=== PATIENT | male | born 1935 | race Caucasian/White ===

== ENCOUNTER 2021-10-08 10:42 | Emergency (ER) | payer OTHER ==
[2021-10-08 11:00] VITALS: BP 138/59; PULSE 76; RESP 18; TEMP 97.3; BMI 27.3
[2021-10-08 12:34] LABS: BASO % 0.6 % (0-2.0); HEMATOCRIT 35.3 % (35.4-49); LYMPH % 11.3 % (8-40); MCHC 34.1 g/dl (32.0-35.9); MEAN CELL VOLUME 91.1 fl (80-96); MEAN PLT VOLUME 9.5 fl (7.5-11.1); MONO % 10.1 % (3.8-10.2); PLATELET COUNT 243 10^3/uL (134-434); RBC 3.88 M/mm3 (4.00-5.60); RDW 14.4 % (11.9-15.9); WHITE BLOOD COUNT 10.2 K/mm3 (4.0-10.0)
[2021-10-08 12:53] LABS: EPI CELLS 3 /uL (0-25.1); HYALINE CASTS 0 /uL (0-3.1); PH,URINE 5.5 (5.0-8.0); URINE APPEARANCE CLEAR; URINE BACTERIA 6 /uL (0-1359); URINE BILIRUBIN NEGATIVE (NEGATIVE); URINE COLOR YELLOW; URINE GLUCOSE (UA) 3+ (NEGATIVE); URINE KETONE NEGATIVE (NEGATIVE); URINE LEUK ESTERASE NEGATIVE (NEGATIVE); URINE NITRITE NEGATIVE (NEGATIVE); URINE PROTEIN 1+ (NEGATIVE); URINE RBC 3 /uL (0-23.9); URINE WBC 16 /uL (0-25.8)
[2021-10-08 13:01] LABS: ALBUMIN 3.1 g/dl (3.4-5.0); BLOOD UREA NITROGEN 17.2 mg/dL (7-18); CALCIUM 8.9 mg/dL (8.5-10.1); MAGNESIUM 1.5 mg/dL (1.8-2.4)
[2021-10-08 13:04] LABS: CREATININE 0.9 mg/dL (0.55-1.3)
[2021-10-08 13:06] LABS: BILIRUBIN,TOTAL 0.3 mg/dL (0.2-1); TOT PROT 6.3 g/dl (6.4-8.2)
== END 2021-10-08 19:43 | disposition home or self-care (01) ==
LOC: EDBD 10:42 → JER 10:42
DX: F03.90 Unspecified dementia, unspecified severity, without behavioral disturbance, psychotic disturbance, mood disturbance, and anxiety (principal)
CPT/HCPCS: 0241U-QW; 36415; 70450-TC; 71045-TC-FY; 72125-TC; 80053; 81003; 83735; 84100; 84484; 85025; 87086; 93005; 93010; 99285-25

== ENCOUNTER 2022-05-18 13:12 | Inpatient (IN) | payer OTHER ==
[2022-05-18 13:54] VITALS: BMI 25.0
[2022-05-18 16:03] LABS: BASO % 0.3 % (0-2.0); EOS % 1.6 % (0-4.5); HEMATOCRIT 35.6 % (35.4-49); HEMOGLOBIN 11.9 GM/dL (11.7-16.9); LYMPH % 12.1 % (8-40); MCH 30.2 pg (25.7-33.7); MCHC 33.4 g/dl (32.0-35.9); MEAN CELL VOLUME 90.6 fl (80-96); MEAN PLT VOLUME 9.3 fl (7.5-11.1); MONO % 8.8 % (3.8-10.2); NEUT % 77.2 % (42.8-82.8); PLATELET COUNT 277 10^3/uL (134-434); RBC 3.94 M/mm3 (4.00-5.60); RDW 14.8 % (11.9-15.9); WHITE BLOOD COUNT 12.4 K/mm3 (4.0-10.0)
[2022-05-18 16:11] LABS: INR 1.46 (0.83-1.09); PROTHROMBIN TIME (PATIENT) 16.9 SEC (9.7-13.0)
[2022-05-18 16:13] LABS: ACTIVATED PTT 31.2 SECONDS (25.2-36.5)
[2022-05-18 16:30] LABS: ALBUMIN 3.1 g/dl (3.4-5.0); BLOOD UREA NITROGEN 19.1 mg/dL (7-18); CALCIUM 8.7 mg/dL (8.5-10.1)
[2022-05-18 16:34] LABS: BILIRUBIN,TOTAL 0.3 mg/dL (0.2-1); TOT PROT 6.6 g/dl (6.4-8.2)
[2022-05-18 16:37] LABS: URINE APPEARANCE CLEAR; URINE BILIRUBIN NEGATIVE (NEGATIVE); URINE COLOR YELLOW; URINE GLUCOSE (UA) TRACE (NEGATIVE); URINE KETONE NEGATIVE (NEGATIVE); URINE LEUK ESTERASE NEGATIVE (NEGATIVE); URINE NITRITE NEGATIVE (NEGATIVE); URINE PROTEIN TRACE (NEGATIVE); URINE UROBILINOGEN 0.2 mg/dL (0.2-1.0)
[2022-05-18] MEDS ORDERED: ASPIRIN 81 MG CHEWABLE TABLETS PO ONE (16:49)
[2022-05-18] MEDS ORDERED: ASPIRIN 81 MG CHEWABLE TABLETS ONE (17:08)
[2022-05-18] MEDS ORDERED: PANTOPRAZOLE 40 MG TABLET PO ONE (18:29)
[2022-05-18] MEDS: INSULIN SLIDING SCALE (NOVOLOG) 1 VIAL SQ SCH (18:37)
[2022-05-18] MEDS: PANTOPRAZOLE 40 MG TABLET PO SCH (18:37)
[2022-05-18] MEDS ORDERED: ACETAMINOPHEN 325 MG TABLET (FP) PO PRN (19:08)
[2022-05-18] MEDS ORDERED: AMMONIUM LACTATE 12% LOTION 225 GM BOTTLE TP SCH (19:15)
[2022-05-18] MEDS ORDERED: WARFARIN NA 5 MG TABLET PO ONE ×2 (19:45→22:15)
[2022-05-18] MEDS: MINERAL OIL/PET HY-PHL TOPICAL OINTMENT 454 GM JAR TP SCH (22:52)
[2022-05-18] MEDS: AMMONIUM LACTATE 12% LOTION 225 GM BOTTLE TP SCH (22:54)
[2022-05-18] MEDS: GABAPENTIN 100 MG CAPSULE PO SCH (22:54)
[2022-05-18] MEDS: FLUTICASONE PROP 0.05% 16 GM NASAL SPRAY NS SCH (22:55)
[2022-05-19] MEDS: INSULIN SLIDING SCALE (NOVOLOG) 1 VIAL SQ SCH ×3 (07:41→17:03)
[2022-05-19 08:49] LABS: BASO % 0.4 % (0-2.0); EOS % 0.2 % (0-4.5); HEMATOCRIT 36.5 % (35.4-49); HEMOGLOBIN 12.1 GM/dL (11.7-16.9); LYMPH % 6.4 % (8-40); MCH 30.2 pg (25.7-33.7); MCHC 33.2 g/dl (32.0-35.9); MEAN CELL VOLUME 90.9 fl (80-96); MEAN PLT VOLUME 9.4 fl (7.5-11.1); MONO % 7.4 % (3.8-10.2); NEUT % 85.6 % (42.8-82.8); PLATELET COUNT 295 10^3/uL (134-434); RBC 4.01 M/mm3 (4.00-5.60); RDW 14.5 % (11.9-15.9); WHITE BLOOD COUNT 19.8 K/mm3 (4.0-10.0)
[2022-05-19] MEDS ORDERED: LORazepam 2 MG/ML SDV VIAL IVPUSH PRN (08:54)
[2022-05-19 09:12] LABS: BLOOD UREA NITROGEN 15.7 mg/dL (7-18); CALCIUM 9.3 mg/dL (8.5-10.1)
[2022-05-19 09:16] LABS: CREATININE 0.9 mg/dL (0.55-1.3)
[2022-05-19 11:13] LABS: INR 1.38 (0.83-1.09)
[2022-05-19] MEDS: PANTOPRAZOLE 40 MG TABLET PO SCH (11:16)
[2022-05-19] MEDS: RIVASTIGMINE 9.5 MG/24 HOURS TRANSDERMAL PATCH TD SCH (11:16)
[2022-05-19] MEDS: KCL 10 MEQ IVPB 10 MEQ/100 ML INFUS.BAG IVPB SCH ×3 (11:16→15:53)
[2022-05-19] MEDS: amLODIPine BESYLATE 10 MG TABLET (FP) PO SCH (11:16)
[2022-05-19] MEDS: LISINOPRIL 10 MG TABLET PO SCH (11:16)
[2022-05-19] MEDS: MULTIVITAMINS THER W-MINERALS COMBO TABLET (FP) PO SCH (11:16)
[2022-05-19] MEDS: FOLIC ACID 1 MG TABLET (FP) PO SCH (11:16)
[2022-05-19] MEDS: MINERAL OIL/PET HY-PHL TOPICAL OINTMENT 454 GM JAR TP SCH ×2 (11:17→23:24)
[2022-05-19] MEDS: FLUTICASONE PROP 0.05% 16 GM NASAL SPRAY NS SCH ×2 (11:17→23:24)
[2022-05-19] MEDS: MUPIROCIN 2% TOPICAL OINTMENT 22 GM TUBE TP SCH ×2 (11:17→23:25)
[2022-05-19] MEDS: CHLORTHALIDONE 25 MG TABLET PO SCH (11:17)
[2022-05-19] MEDS: NYSTATIN POWDER 100,000 UNITS/GM - 15 GM TOPICAL POWDER TP SCH ×2 (11:17→23:25)
[2022-05-19] MEDS: AMMONIUM LACTATE 12% LOTION 225 GM BOTTLE TP SCH ×2 (11:17→23:24)
[2022-05-19] MEDS ORDERED: KCL 10 MEQ IVPB 10 MEQ/100 ML INFUS.BAG IVPB SCH (15:45)
[2022-05-19] MEDS ORDERED: LORazepam 2 MG/ML SDV VIAL IVPUSH ONE (15:57)
[2022-05-19] MEDS ORDERED: WARFARIN NA 5 MG TABLET PO SCH (18:00)
[2022-05-19] MEDS ORDERED: WARFARIN NA 5 MG TABLET PO ONE (18:24)
[2022-05-19] MEDS: GABAPENTIN 100 MG CAPSULE PO SCH (23:27)
[2022-05-19] MEDS: ATORVASTATIN CA 20 MG TABLET (FP) PO SCH (23:27)
[2022-05-20] MEDS: INSULIN SLIDING SCALE (NOVOLOG) 1 VIAL SQ SCH ×5 (06:54→21:17)
[2022-05-20 08:30] LABS: INR 1.49 (0.83-1.09); PROTHROMBIN TIME (PATIENT) 17.2 SEC (9.7-13.0)
[2022-05-20 08:33] LABS: BASO % 0.5 % (0-2.0); HEMATOCRIT 34.6 % (35.4-49); HEMOGLOBIN 11.5 GM/dL (11.7-16.9); MCH 29.5 pg (25.7-33.7); MCHC 33.3 g/dl (32.0-35.9); MEAN CELL VOLUME 88.6 fl (80-96); MEAN PLT VOLUME 8.8 fl (7.5-11.1); MONO % 8.4 % (3.8-10.2); NEUT % 80.1 % (42.8-82.8); PLATELET COUNT 232 10^3/uL (134-434); RBC 3.91 M/mm3 (4.00-5.60); RDW 14.9 % (11.9-15.9); WHITE BLOOD COUNT 12.2 K/mm3 (4.0-10.0)
[2022-05-20] MEDS: FOLIC ACID 1 MG TABLET (FP) PO SCH (09:15)
[2022-05-20] MEDS: amLODIPine BESYLATE 10 MG TABLET (FP) PO SCH (09:15)
[2022-05-20] MEDS: PANTOPRAZOLE 40 MG TABLET PO SCH (09:15)
[2022-05-20] MEDS: LISINOPRIL 10 MG TABLET PO SCH (09:15)
[2022-05-20] MEDS: MINERAL OIL/PET HY-PHL TOPICAL OINTMENT 454 GM JAR TP SCH ×2 (09:15→21:18)
[2022-05-20] MEDS: FLUTICASONE PROP 0.05% 16 GM NASAL SPRAY NS SCH ×2 (09:16→21:17)
[2022-05-20] MEDS: MUPIROCIN 2% TOPICAL OINTMENT 22 GM TUBE TP SCH ×2 (09:17→21:17)
[2022-05-20] MEDS: RIVASTIGMINE 9.5 MG/24 HOURS TRANSDERMAL PATCH TD SCH (09:24)
[2022-05-20] MEDS: CHLORTHALIDONE 25 MG TABLET PO SCH (09:24)
[2022-05-20] MEDS: NYSTATIN POWDER 100,000 UNITS/GM - 15 GM TOPICAL POWDER TP SCH ×2 (09:27→21:17)
[2022-05-20] MEDS: MULTIVITAMINS THER W-MINERALS COMBO TABLET (FP) PO SCH (09:39)
[2022-05-20] MEDS ORDERED: WARFARIN NA 5 MG TABLET PO SCH ×2 (10:31→18:00)
[2022-05-20] MEDS: KCL 10 MEQ IVPB 10 MEQ/100 ML INFUS.BAG IVPB SCH ×3 (11:15→12:49)
[2022-05-20] MEDS ORDERED: INSULIN (NOVOLOG) ASPART 100 UNITS/ML 10ML VIAL ONE ×2 (12:12→21:16)
[2022-05-20] MEDS ORDERED: POTASSIUM CHLORIDE TABS 20 MEQ TABLET.ER (FP) PO ONE (13:30)
[2022-05-20] MEDS ORDERED: LORazepam 2 MG/ML SDV VIAL IVPUSH PRN (17:50)
[2022-05-20] MEDS ORDERED: WARFARIN NA 5 MG TABLET PO ONE (18:00)
[2022-05-20] MEDS: WARFARIN NA 5 MG TABLET PO SCH (18:15)
[2022-05-20] MEDS: ATORVASTATIN CA 20 MG TABLET (FP) PO SCH (21:10)
[2022-05-20] MEDS: GABAPENTIN 100 MG CAPSULE PO SCH (21:10)
[2022-05-20] MEDS: LORazepam 2 MG/ML SDV VIAL IVPUSH PRN (21:50)
[2022-05-21] MEDS: INSULIN SLIDING SCALE (NOVOLOG) 1 VIAL SQ SCH ×4 (06:47→22:38)
[2022-05-21 08:29] LABS: BASO % 0.5 % (0-2.0); HEMATOCRIT 34.2 % (35.4-49); HEMOGLOBIN 11.4 GM/dL (11.7-16.9); LYMPH % 11.5 % (8-40); MCH 29.6 pg (25.7-33.7); MCHC 33.3 g/dl (32.0-35.9); MEAN CELL VOLUME 88.9 fl (80-96); PLATELET COUNT 215 10^3/uL (134-434); RBC 3.85 M/mm3 (4.00-5.60); WHITE BLOOD COUNT 11.4 K/mm3 (4.0-10.0)
[2022-05-21 08:33] LABS: INR 1.95 (0.83-1.09); PROTHROMBIN TIME (PATIENT) 22.5 SEC (9.7-13.0)
[2022-05-21 08:50] LABS: BLOOD UREA NITROGEN 24.5 mg/dL (7-18); CALCIUM 8.6 mg/dL (8.5-10.1)
[2022-05-21] MEDS: MULTIVITAMINS THER W-MINERALS COMBO TABLET (FP) PO SCH (09:08)
[2022-05-21] MEDS: PANTOPRAZOLE 40 MG TABLET PO SCH (09:08)
[2022-05-21] MEDS: LISINOPRIL 10 MG TABLET PO SCH (09:08)
[2022-05-21] MEDS: RIVASTIGMINE 9.5 MG/24 HOURS TRANSDERMAL PATCH TD SCH (09:09)
[2022-05-21] MEDS: FOLIC ACID 1 MG TABLET (FP) PO SCH (09:09)
[2022-05-21] MEDS: amLODIPine BESYLATE 10 MG TABLET (FP) PO SCH (09:09)
[2022-05-21] MEDS: MUPIROCIN 2% TOPICAL OINTMENT 22 GM TUBE TP SCH ×2 (09:13→22:31)
[2022-05-21] MEDS: CHLORTHALIDONE 25 MG TABLET PO SCH (09:13)
[2022-05-21] MEDS: NYSTATIN POWDER 100,000 UNITS/GM - 15 GM TOPICAL POWDER TP SCH ×2 (09:13→22:39)
[2022-05-21] MEDS: MINERAL OIL/PET HY-PHL TOPICAL OINTMENT 454 GM JAR TP SCH ×2 (09:13→22:31)
[2022-05-21] MEDS: FLUTICASONE PROP 0.05% 16 GM NASAL SPRAY NS SCH ×2 (09:14→22:31)
[2022-05-21] MEDS: WARFARIN NA 5 MG TABLET PO SCH (17:28)
[2022-05-21] MEDS ORDERED: WARFARIN NA 2 MG TABLET PO ONE (18:00)
[2022-05-21] MEDS: LORazepam 2 MG/ML SDV VIAL IVPUSH PRN (20:20)
[2022-05-21] MEDS: GABAPENTIN 100 MG CAPSULE PO SCH (22:30)
[2022-05-21] MEDS: ATORVASTATIN CA 20 MG TABLET (FP) PO SCH (22:30)
[2022-05-22 09:03] LABS: INR 2.55 (0.83-1.09); PROTHROMBIN TIME (PATIENT) 29.3 SEC (9.7-13.0)
[2022-05-22] MEDS: MUPIROCIN 2% TOPICAL OINTMENT 22 GM TUBE TP SCH ×2 (11:18→23:30)
[2022-05-22] MEDS: MINERAL OIL/PET HY-PHL TOPICAL OINTMENT 454 GM JAR TP SCH ×2 (11:18→23:29)
[2022-05-22] MEDS: RIVASTIGMINE 9.5 MG/24 HOURS TRANSDERMAL PATCH TD SCH (11:19)
[2022-05-22] MEDS: FLUTICASONE PROP 0.05% 16 GM NASAL SPRAY NS SCH ×2 (11:19→23:30)
[2022-05-22] MEDS: CHLORTHALIDONE 25 MG TABLET PO SCH (11:20)
[2022-05-22] MEDS: NYSTATIN POWDER 100,000 UNITS/GM - 15 GM TOPICAL POWDER TP SCH ×2 (11:21→23:31)
[2022-05-22] MEDS: INSULIN SLIDING SCALE (NOVOLOG) 1 VIAL SQ SCH ×4 (11:27→23:31)
[2022-05-22] MEDS: LISINOPRIL 10 MG TABLET PO SCH (11:38)
[2022-05-22] MEDS: PANTOPRAZOLE 40 MG TABLET PO SCH (11:38)
[2022-05-22] MEDS: amLODIPine BESYLATE 10 MG TABLET (FP) PO SCH (11:38)
[2022-05-22] MEDS: FOLIC ACID 1 MG TABLET (FP) PO SCH (11:38)
[2022-05-22] MEDS: MULTIVITAMINS THER W-MINERALS COMBO TABLET (FP) PO SCH (11:38)
[2022-05-22] MEDS: LORazepam 2 MG/ML SDV VIAL IVPUSH PRN (14:38)
[2022-05-22] MEDS ORDERED: WARFARIN NA 5 MG TABLET PO SCH ×3 (18:00)
[2022-05-22] MEDS ORDERED: ATORVASTATIN CA 10 MG TABLET (FP) PO SCH ×2 (22:00→22:23)
[2022-05-22] MEDS: GABAPENTIN 100 MG CAPSULE PO SCH (23:31)
[2022-05-22] MEDS: ATORVASTATIN CA 20 MG TABLET (FP) PO SCH (23:39)
[2022-05-23 06:28] VITALS: BP 144/64; PULSE 74; RESP 20; TEMP 97.4
[2022-05-23] MEDS: INSULIN SLIDING SCALE (NOVOLOG) 1 VIAL SQ SCH ×2 (07:58→11:59)
[2022-05-23 09:21] LABS: INR 3.19 (0.83-1.09); PROTHROMBIN TIME (PATIENT) 36.6 SEC (9.7-13.0)
[2022-05-23] MEDS: MINERAL OIL/PET HY-PHL TOPICAL OINTMENT 454 GM JAR TP SCH (10:04)
[2022-05-23] MEDS: MUPIROCIN 2% TOPICAL OINTMENT 22 GM TUBE TP SCH (10:04)
[2022-05-23] MEDS: amLODIPine BESYLATE 10 MG TABLET (FP) PO SCH (10:05)
[2022-05-23] MEDS: RIVASTIGMINE 9.5 MG/24 HOURS TRANSDERMAL PATCH TD SCH (10:05)
[2022-05-23] MEDS: FLUTICASONE PROP 0.05% 16 GM NASAL SPRAY NS SCH (10:05)
[2022-05-23] MEDS: LISINOPRIL 10 MG TABLET PO SCH (10:06)
[2022-05-23] MEDS: MULTIVITAMINS THER W-MINERALS COMBO TABLET (FP) PO SCH (10:06)
[2022-05-23] MEDS: PANTOPRAZOLE 40 MG TABLET PO SCH (10:06)
[2022-05-23] MEDS: CHLORTHALIDONE 25 MG TABLET PO SCH (10:06)
[2022-05-23] MEDS: NYSTATIN POWDER 100,000 UNITS/GM - 15 GM TOPICAL POWDER TP SCH (10:06)
[2022-05-23] MEDS: FOLIC ACID 1 MG TABLET (FP) PO SCH (10:06)
== END 2022-05-23 13:10 | DRG 92 ==
LOC: JER 13:12 → JERBED 16:42 → J8W 19:51
PROVIDERS: ADMIT Internal Medicine; ATTEND Internal Medicine
DX: H51.22 Internuclear ophthalmoplegia, left eye (principal); I48.20 Chronic atrial fibrillation, unspecified; H49.02 Third [oculomotor] nerve palsy, left eye; H53.2 Diplopia; I10 Essential (primary) hypertension; E78.5 Hyperlipidemia, unspecified; F03.90 Unspecified dementia, unspecified severity, without behavioral disturbance, psychotic disturbance, mood disturbance, and anxiety; I25.10 Atherosclerotic heart disease of native coronary artery without angina pectoris; E11.42 Type 2 diabetes mellitus with diabetic polyneuropathy; D72.829 Elevated white blood cell count, unspecified; S31.829A Unspecified open wound of left buttock, initial encounter; Z95.0 Presence of cardiac pacemaker; Z79.01 Long term (current) use of anticoagulants
CPT/HCPCS: 0241U-QW; 36415; 70450-TC; 70496-TC; 70498-TC; 71045-TC-FY; 80048; 80053; 81003; 82607; 82962; 83036; 84484; 85025; 85610; 85730; 87040; 87086; 93005; 93010; 97116-GP; 97161-GP; 99285-25; C9803-CS; Q9967; U0003; U0005

== ENCOUNTER 2022-07-19 06:53 | Emergency (ER) | payer OTHER ==
[2022-07-19 07:20] VITALS: RESP 16; BMI 63.8
[2022-07-19 07:55] LABS: BASO % 0.6 % (0-2.0); EOS % 1.1 % (0-4.5); HEMATOCRIT 31.8 % (35.4-49); HEMOGLOBIN 11.1 GM/dL (11.7-16.9); LYMPH % 11.4 % (8-40); MCH 30.4 pg (25.7-33.7); MCHC 34.8 g/dl (32.0-35.9); MEAN CELL VOLUME 87.3 fl (80-96); MEAN PLT VOLUME 8.7 fl (7.5-11.1); NEUT % 77.9 % (42.8-82.8); PLATELET COUNT 218 10^3/uL (134-434); RBC 3.64 M/mm3 (4.00-5.60); RDW 15.4 % (11.9-15.9); WHITE BLOOD COUNT 11.5 K/mm3 (4.0-10.0)
[2022-07-19 08:16] LABS: INR 3.25 (0.83-1.09); PROTHROMBIN TIME (PATIENT) 37.3 SEC (9.7-13.0)
[2022-07-19 11:34] VITALS: BP 130/70; PULSE 64; TEMP 98.3
== END 2022-07-19 12:12 | disposition home or self-care (01) ==
LOC: JER 06:53
DX: M54.50 Low back pain, unspecified (principal); F03.90 Unspecified dementia, unspecified severity, without behavioral disturbance, psychotic disturbance, mood disturbance, and anxiety; R79.1 Abnormal coagulation profile; M12.842 Other specific arthropathies, not elsewhere classified, left hand; W19.XXXA Unspecified fall, initial encounter
CPT/HCPCS: 36415; 70450-TC; 72070-TC-FY; 72100-TC-FY; 72125-TC; 72170-TC-FY; 82962; 85025; 85610; 99285-25

== ENCOUNTER 2022-08-28 19:28 | Inpatient (IN) | payer OTHER ==
[2022-08-28] MEDS ORDERED: PIPERACILLIN/TAZOB 3.375 GM 3.375 GM in DEXTROSE 5%-WATER - 50 ML IVPB ONE (20:55)
[2022-08-28] MEDS ORDERED: VANCOMYCIN/WATER FOR INJ (PEG) 1,000 MG/200 ML BAG IVPB ONE (21:00)
[2022-08-28] MEDS ORDERED: PIPERACILLIN/TAZOB 3.375 GM 3.375 GM/50 ML BAG IVPB ONE (21:01)
[2022-08-28 21:07] LABS: BASO % 0.4 % (0-2.0); EOS % 0.4 % (0-4.5); HEMATOCRIT 33.6 % (35.4-49); LYMPH % 2.4 % (8-40); MCH 28.8 pg (25.7-33.7); MCHC 32.7 g/dl (32.0-35.9); MEAN CELL VOLUME 88.1 fl (80-96); MEAN PLT VOLUME 9.3 fl (7.5-11.1); MONO % 6.1 % (3.8-10.2); NEUT % 90.7 % (42.8-82.8); PLATELET COUNT 272 10^3/uL (134-434); RBC 3.82 M/mm3 (4.00-5.60); WHITE BLOOD COUNT 19.2 K/mm3 (4.0-10.0)
[2022-08-28] MEDS ORDERED: ACETAMINOPHEN INJECTION 100 ML IVPB ONE (21:07)
[2022-08-28] MEDS ORDERED: ACETAMINOPHEN 1000 MG/100 ML BAG IVPB ONE (21:07)
[2022-08-28 21:13] LABS: PROTHROMBIN TIME (PATIENT) 48.7 SEC (9.7-13.0)
[2022-08-28 21:16] LABS: ACTIVATED PTT 42.8 SECONDS (25.2-36.5)
[2022-08-28 21:22] LABS: VENOUS BASE EXCESS 0.2 mmol/L (-2-2); VENOUS O2 SATURATION 67.8 % (70-80); VENOUS PCO2 40.8 mmHg (38-52); VENOUS PH 7.404 (7.310-7.410)
[2022-08-28] MEDS ORDERED: ACETAMINOPHEN 325 MG TABLET (FP) PO PRN (21:30)
[2022-08-28 21:41] LABS: INR 4.26 (0.83-1.09)
[2022-08-28 21:50] LABS: LACTIC ACID 2.6 mmol/L (0.4-2.0)
[2022-08-28] MEDS: VANCOMYCIN 1 GM in D5W (PRE-DOCKED) 1,000 MG/250 ML (RESTRICTED TO ID ONLY IVPB ONE (21:53)
[2022-08-28 21:55] LABS: CHLORIDE 97 mmol/L (98-107); POTASSIUM 4.1 mmol/L (3.5-5.1); SODIUM 135 mmol/L (136-145)
[2022-08-28 21:56] LABS: CALCIUM 8.8 mg/dL (8.5-10.1)
[2022-08-28 21:57] LABS: ALBUMIN 3.3 g/dl (3.4-5.0); ANION GAP 11 MMOL/L (8-16); BLOOD UREA NITROGEN 25.2 mg/dL (7-18); CO2 27 mmol/L (21-32); GLUCOSE,RANDOM 273 mg/dL (74-106)
[2022-08-28 22:00] LABS: CREATININE 1.3 mg/dL (0.55-1.3); SGOT/AST 17 U/L (15-37); SGPT/ALT 20 U/L (13-61)
[2022-08-28 22:02] LABS: BILIRUBIN,TOTAL 0.5 mg/dL (0.2-1); TOT PROT 6.8 g/dl (6.4-8.2)
[2022-08-28 22:03] LABS: ALK PHOS 79 U/L (45-117)
[2022-08-28 22:57] LABS: N-TERMINAL BNP 1209.9 pg/ml (5-450)
[2022-08-28] MEDS: GABAPENTIN 100 MG CAPSULE PO SCH (23:00)
[2022-08-28] MEDS: PANTOPRAZOLE 40 MG TABLET PO SCH (23:00)
[2022-08-28] MEDS: ATORVASTATIN CA 20 MG TABLET (FP) PO SCH (23:00)
[2022-08-29] MEDS: INSULIN SLIDING SCALE (NOVOLOG) 1 VIAL SQ SCH ×4 (00:54→17:01)
[2022-08-29] MEDS: VANCOMYCIN 1 GM in D5W (PRE-DOCKED) 1,000 MG/250 ML (RESTRICTED TO ID ONLY IVPB ONE (01:30)
[2022-08-29] MEDS: FOLIC ACID 1 MG TABLET (FP) PO SCH (09:47)
[2022-08-29] MEDS: CHLORTHALIDONE 25 MG TABLET PO SCH (09:47)
[2022-08-29] MEDS: PANTOPRAZOLE 40 MG TABLET PO SCH (09:47)
[2022-08-29] MEDS: RIVASTIGMINE 9.5 MG/24 HOURS TRANSDERMAL PATCH TD SCH (09:47)
[2022-08-29] MEDS: amLODIPine BESYLATE 10 MG TABLET (FP) PO SCH (09:47)
[2022-08-29] MEDS: MULTIVITAMINS THER W-MINERALS COMBO TABLET (FP) PO SCH (09:47)
[2022-08-29 10:01] LABS: INR 3.54 (0.83-1.09); PROTHROMBIN TIME (PATIENT) 40.6 SEC (9.7-13.0)
[2022-08-29 10:02] LABS: HEMATOCRIT 30.1 % (35.4-49); HEMOGLOBIN 10.2 GM/dL (11.7-16.9); MCH 29.4 pg (25.7-33.7); MCHC 33.9 g/dl (32.0-35.9); MEAN CELL VOLUME 86.8 fl (80-96); MEAN PLT VOLUME 8.8 fl (7.5-11.1); PLATELET COUNT 233 10^3/uL (134-434); RBC 3.47 M/mm3 (4.00-5.60); WHITE BLOOD COUNT 22.3 K/mm3 (4.0-10.0)
[2022-08-29 10:13] LABS: POTASSIUM 3.9 mmol/L (3.5-5.1)
[2022-08-29 10:19] LABS: CALCIUM 8.5 mg/dL (8.5-10.1)
[2022-08-29 10:20] LABS: BLOOD UREA NITROGEN 18.7 mg/dL (7-18)
[2022-08-29 10:51] LABS: ANISOCYTOSIS 0; HELMET CELLS 0; HOWELL-JOLLY BODIES 0; MACROCYTOSIS 0; OVALOCYTE 0; ROULEAU 0; SICKELED CELLS 0; TARGET CELLS 0; TEAR DROP CELLS 0; TOXIC GRANULATION 0
[2022-08-29 11:51] LABS: PH,URINE 5.5 (5.0-8.0); URINE APPEARANCE CLEAR; URINE BILIRUBIN NEGATIVE (NEGATIVE); URINE COLOR YELLOW; URINE GLUCOSE (UA) 1+ (NEGATIVE); URINE KETONE NEGATIVE (NEGATIVE); URINE LEUK ESTERASE NEGATIVE (NEGATIVE); URINE NITRITE NEGATIVE (NEGATIVE); URINE PROTEIN TRACE (NEGATIVE); URINE UROBILINOGEN 0.2 mg/dL (0.2-1.0)
[2022-08-29 12:34] LABS: LACTIC ACID 2.6 mmol/L (0.4-2.0)
[2022-08-29] MEDS: CEFTRIAXONE 2 GM in DEXTROSE 5%-WATER 100 ML IVPB SCH (13:47)
[2022-08-29] MEDS: DOXYCYCLINE INJECTION 100 MG in DEXTROSE 5%-WATER 100 ML IVPB SCH ×2 (13:47→22:28)
[2022-08-29] MEDS ORDERED: WARFARIN NA 5 MG TABLET PO SCH (18:00)
[2022-08-29] MEDS ORDERED: WARFARIN NA 10 MG TABLET PO SCH (18:00)
[2022-08-29] MEDS ORDERED: WARFARIN NA 2.5 MG TABLET PO ONE ×2 (18:00)
[2022-08-29] MEDS ORDERED: LORazepam 2 MG/ML SDV VIAL IVPUSH PRN (19:10)
[2022-08-29] MEDS: GABAPENTIN 100 MG CAPSULE PO SCH (22:28)
[2022-08-29] MEDS: ATORVASTATIN CA 20 MG TABLET (FP) PO SCH (22:29)
[2022-08-30] MEDS: INSULIN SLIDING SCALE (NOVOLOG) 1 VIAL SQ SCH ×3 (06:20→17:01)
[2022-08-30 09:33] LABS: INR 1.92 (0.83-1.09); PROTHROMBIN TIME (PATIENT) 22.1 SEC (9.7-13.0)
[2022-08-30 09:52] LABS: BASO % 0.3 % (0-2.0); EOS % 0.8 % (0-4.5); HEMATOCRIT 32.5 % (35.4-49); HEMOGLOBIN 11.1 GM/dL (11.7-16.9); LYMPH % 4.1 % (8-40); MCH 29.4 pg (25.7-33.7); MCHC 34.3 g/dl (32.0-35.9); MEAN CELL VOLUME 85.9 fl (80-96); MEAN PLT VOLUME 9.1 fl (7.5-11.1); MONO % 7.8 % (3.8-10.2); PLATELET COUNT 286 10^3/uL (134-434); RBC 3.79 M/mm3 (4.00-5.60); RDW 15.1 % (11.9-15.9); WHITE BLOOD COUNT 18.9 K/mm3 (4.0-10.0)
[2022-08-30 10:03] LABS: ERYTHROCYTE SEDIMENTATION RATE 98 mm/hr (0-20)
[2022-08-30] MEDS: DOXYCYCLINE INJECTION 100 MG in DEXTROSE 5%-WATER 100 ML IVPB SCH ×2 (10:49→21:36)
[2022-08-30] MEDS: CEFTRIAXONE 2 GM in DEXTROSE 5%-WATER 100 ML IVPB SCH (10:49)
[2022-08-30] MEDS: MULTIVITAMINS THER W-MINERALS COMBO TABLET (FP) PO SCH (10:50)
[2022-08-30] MEDS: FOLIC ACID 1 MG TABLET (FP) PO SCH (10:50)
[2022-08-30] MEDS: RIVASTIGMINE 9.5 MG/24 HOURS TRANSDERMAL PATCH TD SCH (10:50)
[2022-08-30] MEDS: PANTOPRAZOLE 40 MG TABLET PO SCH (10:50)
[2022-08-30] MEDS: amLODIPine BESYLATE 10 MG TABLET (FP) PO SCH (10:50)
[2022-08-30] MEDS: CHLORTHALIDONE 25 MG TABLET PO SCH (10:51)
[2022-08-30] MEDS: WARFARIN NA 10 MG TABLET PO SCH (18:03)
[2022-08-30] MEDS: GABAPENTIN 100 MG CAPSULE PO SCH (21:36)
[2022-08-30] MEDS: ATORVASTATIN CA 20 MG TABLET (FP) PO SCH (21:36)
[2022-08-31] MEDS: INSULIN SLIDING SCALE (NOVOLOG) 1 VIAL SQ SCH ×3 (06:00→16:50)
[2022-08-31] MEDS ORDERED: DOXYCYCLINE HYCLATE 100 MG VIAL ONE (09:29)
[2022-08-31] MEDS: CEFTRIAXONE 2 GM in DEXTROSE 5%-WATER 100 ML IVPB SCH (09:32)
[2022-08-31] MEDS: MULTIVITAMINS THER W-MINERALS COMBO TABLET (FP) PO SCH (09:33)
[2022-08-31] MEDS: CHLORTHALIDONE 25 MG TABLET PO SCH (09:33)
[2022-08-31] MEDS: PANTOPRAZOLE 40 MG TABLET PO SCH (09:33)
[2022-08-31] MEDS: DOXYCYCLINE INJECTION 100 MG in DEXTROSE 5%-WATER 100 ML IVPB SCH ×2 (09:33→21:20)
[2022-08-31] MEDS: amLODIPine BESYLATE 10 MG TABLET (FP) PO SCH (09:33)
[2022-08-31] MEDS: FOLIC ACID 1 MG TABLET (FP) PO SCH (09:33)
[2022-08-31] MEDS: RIVASTIGMINE 9.5 MG/24 HOURS TRANSDERMAL PATCH TD SCH (09:33)
[2022-08-31 10:20] LABS: INR 1.98 (0.83-1.09); PROTHROMBIN TIME (PATIENT) 22.8 SEC (9.7-13.0)
[2022-08-31 10:25] LABS: BASO % 0.3 % (0-2.0); EOS % 0.8 % (0-4.5); HEMATOCRIT 32.2 % (35.4-49); HEMOGLOBIN 10.8 GM/dL (11.7-16.9); LYMPH % 4.7 % (8-40); MCH 28.9 pg (25.7-33.7); MCHC 33.5 g/dl (32.0-35.9); MEAN CELL VOLUME 86.3 fl (80-96); MEAN PLT VOLUME 8.9 fl (7.5-11.1); MONO % 9.3 % (3.8-10.2); NEUT % 84.9 % (42.8-82.8); PLATELET COUNT 316 10^3/uL (134-434); RBC 3.73 M/mm3 (4.00-5.60); RDW 14.7 % (11.9-15.9); WHITE BLOOD COUNT 16.2 K/mm3 (4.0-10.0)
[2022-08-31 10:37] LABS: POTASSIUM 3.5 mmol/L (3.5-5.1)
[2022-08-31 10:44] LABS: CALCIUM 8.9 mg/dL (8.5-10.1)
[2022-08-31 10:45] LABS: BLOOD UREA NITROGEN 13.9 mg/dL (7-18)
[2022-08-31 10:48] LABS: CREATININE 0.8 mg/dL (0.55-1.3)
[2022-08-31 11:14] LABS: ERYTHROCYTE SEDIMENTATION RATE 101 mm/hr (0-20)
[2022-08-31] MEDS ORDERED: POTASSIUM CHLORIDE TABS 20 MEQ TABLET.ER (FP) PO ONE (12:00)
[2022-08-31] MEDS ORDERED: WARFARIN NA 7.5 MG TABLET PO ONE (18:00)
[2022-08-31] MEDS: ATORVASTATIN CA 20 MG TABLET (FP) PO SCH (21:20)
[2022-08-31] MEDS: GABAPENTIN 100 MG CAPSULE PO SCH (21:20)
[2022-09-01] MEDS: INSULIN SLIDING SCALE (NOVOLOG) 1 VIAL SQ SCH ×3 (06:27→17:05)
[2022-09-01] MEDS: RIVASTIGMINE 9.5 MG/24 HOURS TRANSDERMAL PATCH TD SCH (09:44)
[2022-09-01] MEDS: PANTOPRAZOLE 40 MG TABLET PO SCH (09:44)
[2022-09-01] MEDS: amLODIPine BESYLATE 10 MG TABLET (FP) PO SCH (09:44)
[2022-09-01] MEDS: FOLIC ACID 1 MG TABLET (FP) PO SCH (09:44)
[2022-09-01] MEDS: MULTIVITAMINS THER W-MINERALS COMBO TABLET (FP) PO SCH (09:44)
[2022-09-01] MEDS: DOXYCYCLINE INJECTION 100 MG in DEXTROSE 5%-WATER 100 ML IVPB SCH ×2 (09:44→22:19)
[2022-09-01] MEDS: CHLORTHALIDONE 25 MG TABLET PO SCH (09:44)
[2022-09-01 09:55] LABS: BASO % 0.3 % (0-2.0); EOS % 2.3 % (0-4.5); HEMOGLOBIN 10.9 GM/dL (11.7-16.9); INR 3.44 (0.83-1.09); LYMPH % 5.2 % (8-40); MCH 29.3 pg (25.7-33.7); MCHC 33.9 g/dl (32.0-35.9); MEAN CELL VOLUME 86.4 fl (80-96); MEAN PLT VOLUME 8.4 fl (7.5-11.1); MONO % 10.1 % (3.8-10.2); NEUT % 82.1 % (42.8-82.8); PLATELET COUNT 321 10^3/uL (134-434); PROTHROMBIN TIME (PATIENT) 39.4 SEC (9.7-13.0); RBC 3.71 M/mm3 (4.00-5.60); RDW 14.9 % (11.9-15.9); WHITE BLOOD COUNT 14.3 K/mm3 (4.0-10.0)
[2022-09-01] MEDS: CEFTRIAXONE 2 GM in DEXTROSE 5%-WATER 100 ML IVPB SCH (10:51)
[2022-09-01] MEDS: WARFARIN NA 10 MG TABLET PO SCH (17:06)
[2022-09-01] MEDS: GABAPENTIN 100 MG CAPSULE PO SCH (22:20)
[2022-09-01] MEDS: ATORVASTATIN CA 20 MG TABLET (FP) PO SCH (22:20)
[2022-09-02] MEDS: INSULIN SLIDING SCALE (NOVOLOG) 1 VIAL SQ SCH ×3 (06:40→16:57)
[2022-09-02 09:15] LABS: BASO % 0.4 % (0-2.0); EOS % 2.2 % (0-4.5); HEMATOCRIT 33.5 % (35.4-49); HEMOGLOBIN 11.3 GM/dL (11.7-16.9); LYMPH % 6.8 % (8-40); MCH 29.2 pg (25.7-33.7); MCHC 33.7 g/dl (32.0-35.9); MEAN CELL VOLUME 86.7 fl (80-96); MEAN PLT VOLUME 8.3 fl (7.5-11.1); MONO % 11.3 % (3.8-10.2); NEUT % 79.3 % (42.8-82.8); PLATELET COUNT 384 10^3/uL (134-434); RBC 3.86 M/mm3 (4.00-5.60); RDW 14.8 % (11.9-15.9); WHITE BLOOD COUNT 15.5 K/mm3 (4.0-10.0)
[2022-09-02 09:23] LABS: INR 3.72 (0.83-1.09); PROTHROMBIN TIME (PATIENT) 42.6 SEC (9.7-13.0)
[2022-09-02] MEDS: MULTIVITAMINS THER W-MINERALS COMBO TABLET (FP) PO SCH (09:46)
[2022-09-02] MEDS: PANTOPRAZOLE 40 MG TABLET PO SCH (09:47)
[2022-09-02] MEDS: CEFTRIAXONE 2 GM in DEXTROSE 5%-WATER 100 ML IVPB SCH (09:47)
[2022-09-02] MEDS: FOLIC ACID 1 MG TABLET (FP) PO SCH (09:48)
[2022-09-02] MEDS: DOXYCYCLINE INJECTION 100 MG in DEXTROSE 5%-WATER 100 ML IVPB SCH ×2 (09:48→21:08)
[2022-09-02] MEDS: amLODIPine BESYLATE 10 MG TABLET (FP) PO SCH (09:48)
[2022-09-02] MEDS: CHLORTHALIDONE 25 MG TABLET PO SCH (10:04)
[2022-09-02] MEDS: RIVASTIGMINE 9.5 MG/24 HOURS TRANSDERMAL PATCH TD SCH (10:04)
[2022-09-02 11:13] LABS: ERYTHROCYTE SEDIMENTATION RATE 97 mm/hr (0-20)
[2022-09-02] MEDS: GABAPENTIN 100 MG CAPSULE PO SCH (21:07)
[2022-09-02] MEDS: ATORVASTATIN CA 20 MG TABLET (FP) PO SCH (21:07)
[2022-09-03] MEDS: INSULIN SLIDING SCALE (NOVOLOG) 1 VIAL SQ SCH ×3 (06:12→16:09)
[2022-09-03 09:44] LABS: BASO % 0.9 % (0-2.0); EOS % 2.7 % (0-4.5); HEMATOCRIT 34.8 % (35.4-49); HEMOGLOBIN 11.4 GM/dL (11.7-16.9); LYMPH % 7.8 % (8-40); MCHC 32.9 g/dl (32.0-35.9); MEAN CELL VOLUME 88.2 fl (80-96); MEAN PLT VOLUME 8.7 fl (7.5-11.1); MONO % 10.4 % (3.8-10.2); NEUT % 78.2 % (42.8-82.8); PLATELET COUNT 386 10^3/uL (134-434); RBC 3.94 M/mm3 (4.00-5.60); RDW 14.6 % (11.9-15.9); WHITE BLOOD COUNT 13.6 K/mm3 (4.0-10.0)
[2022-09-03 09:54] LABS: PROTHROMBIN TIME (PATIENT) 56.9 SEC (9.7-13.0)
[2022-09-03 10:02] LABS: POTASSIUM 3.8 mmol/L (3.5-5.1)
[2022-09-03 10:04] LABS: BLOOD UREA NITROGEN 15.8 mg/dL (7-18)
[2022-09-03 10:07] LABS: CREATININE 0.7 mg/dL (0.55-1.3)
[2022-09-03 10:28] LABS: INR 4.98 (0.83-1.09)
[2022-09-03 10:38] LABS: ERYTHROCYTE SEDIMENTATION RATE 95 mm/hr (0-20)
[2022-09-03] MEDS: FOLIC ACID 1 MG TABLET (FP) PO SCH (12:20)
[2022-09-03] MEDS: PANTOPRAZOLE 40 MG TABLET PO SCH (12:21)
[2022-09-03] MEDS: amLODIPine BESYLATE 10 MG TABLET (FP) PO SCH (12:21)
[2022-09-03] MEDS: DOXYCYCLINE INJECTION 100 MG in DEXTROSE 5%-WATER 100 ML IVPB SCH (12:22)
[2022-09-03] MEDS: CHLORTHALIDONE 25 MG TABLET PO SCH (12:25)
[2022-09-03] MEDS: RIVASTIGMINE 9.5 MG/24 HOURS TRANSDERMAL PATCH TD SCH (12:25)
[2022-09-03] MEDS: MULTIVITAMINS THER W-MINERALS COMBO TABLET (FP) PO SCH (12:26)
[2022-09-03] MEDS: CEFTRIAXONE 2 GM in DEXTROSE 5%-WATER 100 ML IVPB SCH (13:25)
[2022-09-03] MEDS: PIPERACILLIN/TAZOB 3.375 GM 3.375 GM in DEXTROSE 5%-WATER - 50 ML IVPB SCH (17:57)
[2022-09-03] MEDS: GABAPENTIN 100 MG CAPSULE PO SCH (21:21)
[2022-09-03] MEDS: ATORVASTATIN CA 20 MG TABLET (FP) PO SCH (21:21)
[2022-09-04] MEDS: PIPERACILLIN/TAZOB 3.375 GM 3.375 GM in DEXTROSE 5%-WATER - 50 ML IVPB SCH ×3 (02:22→18:23)
[2022-09-04] MEDS: INSULIN SLIDING SCALE (NOVOLOG) 1 VIAL SQ SCH ×3 (06:48→16:46)
[2022-09-04] MEDS: RIVASTIGMINE 9.5 MG/24 HOURS TRANSDERMAL PATCH TD SCH (09:06)
[2022-09-04] MEDS: FOLIC ACID 1 MG TABLET (FP) PO SCH (09:06)
[2022-09-04] MEDS: amLODIPine BESYLATE 10 MG TABLET (FP) PO SCH (09:06)
[2022-09-04] MEDS: MULTIVITAMINS THER W-MINERALS COMBO TABLET (FP) PO SCH (09:06)
[2022-09-04] MEDS: PANTOPRAZOLE 40 MG TABLET PO SCH (09:06)
[2022-09-04] MEDS: CHLORTHALIDONE 25 MG TABLET PO SCH (09:06)
[2022-09-04 10:39] LABS: PROTHROMBIN TIME (PATIENT) 70.7 SEC (9.7-13.0)
[2022-09-04 10:41] LABS: BASO % 0.6 % (0-2.0); EOS % 1.1 % (0-4.5); HEMATOCRIT 34.7 % (35.4-49); HEMOGLOBIN 11.6 GM/dL (11.7-16.9); LYMPH % 4.8 % (8-40); MCH 29.2 pg (25.7-33.7); MCHC 33.4 g/dl (32.0-35.9); MEAN CELL VOLUME 87.4 fl (80-96); MEAN PLT VOLUME 8.3 fl (7.5-11.1); MONO % 8.6 % (3.8-10.2); NEUT % 84.9 % (42.8-82.8); PLATELET COUNT 405 10^3/uL (134-434); RBC 3.96 M/mm3 (4.00-5.60); RDW 14.9 % (11.9-15.9); WHITE BLOOD COUNT 12.6 K/mm3 (4.0-10.0)
[2022-09-04 10:54] LABS: POTASSIUM 3.8 mmol/L (3.5-5.1)
[2022-09-04 10:58] LABS: BLOOD UREA NITROGEN 23.2 mg/dL (7-18); CALCIUM 8.8 mg/dL (8.5-10.1)
[2022-09-04 11:28] LABS: ERYTHROCYTE SEDIMENTATION RATE 89 mm/hr (0-20)
[2022-09-04 11:38] LABS: INR 6.21 (0.83-1.09)
[2022-09-04 16:07] VITALS: BMI 25.2
[2022-09-04] MEDS ORDERED: WARFARIN NA 7.5 MG TABLET PO SCH (18:00)
[2022-09-04] MEDS ORDERED: WARFARIN NA 5 MG TABLET PO SCH (18:00)
[2022-09-04 19:21] LABS: PROTHROMBIN TIME (PATIENT) 46.4 SEC (9.7-13.0)
[2022-09-04 19:39] LABS: INR 4.06 (0.83-1.09)
[2022-09-04] MEDS: ATORVASTATIN CA 20 MG TABLET (FP) PO SCH (21:44)
[2022-09-04] MEDS: GABAPENTIN 100 MG CAPSULE PO SCH (21:44)
[2022-09-05] MEDS: PIPERACILLIN/TAZOB 3.375 GM 3.375 GM in DEXTROSE 5%-WATER - 50 ML IVPB SCH ×3 (01:47→17:35)
[2022-09-05] MEDS: INSULIN SLIDING SCALE (NOVOLOG) 1 VIAL SQ SCH ×3 (06:26→17:35)
[2022-09-05 09:44] LABS: BASO % 0.6 % (0-2.0); HEMATOCRIT 31.4 % (35.4-49); HEMOGLOBIN 10.6 GM/dL (11.7-16.9); LYMPH % 9.4 % (8-40); MCH 29.9 pg (25.7-33.7); MCHC 33.9 g/dl (32.0-35.9); MEAN CELL VOLUME 88.1 fl (80-96); MEAN PLT VOLUME 8.6 fl (7.5-11.1); MONO % 10.1 % (3.8-10.2); NEUT % 76.9 % (42.8-82.8); PLATELET COUNT 377 10^3/uL (134-434); RBC 3.56 M/mm3 (4.00-5.60); RDW 14.6 % (11.9-15.9); WHITE BLOOD COUNT 10.7 K/mm3 (4.0-10.0)
[2022-09-05 09:49] LABS: INR 3.34 (0.83-1.09); PROTHROMBIN TIME (PATIENT) 38.3 SEC (9.7-13.0)
[2022-09-05] MEDS: FOLIC ACID 1 MG TABLET (FP) PO SCH (10:01)
[2022-09-05] MEDS: PANTOPRAZOLE 40 MG TABLET PO SCH (10:01)
[2022-09-05] MEDS: MULTIVITAMINS (DAILY MVI) TABLET (FP) PO SCH (10:02)
[2022-09-05] MEDS: amLODIPine BESYLATE 10 MG TABLET (FP) PO SCH (10:02)
[2022-09-05] MEDS ORDERED: WARFARIN NA 2.5 MG TABLET PO SCH (10:03)
[2022-09-05] MEDS: CHLORTHALIDONE 25 MG TABLET PO SCH (10:05)
[2022-09-05] MEDS: RIVASTIGMINE 9.5 MG/24 HOURS TRANSDERMAL PATCH TD SCH (10:05)
[2022-09-05 10:43] LABS: ERYTHROCYTE SEDIMENTATION RATE 2 mm/hr (0-20)
[2022-09-05 12:47] VITALS: RESP 18
[2022-09-05] MEDS: LORazepam 2 MG/ML SDV VIAL IVPUSH PRN (18:13)
[2022-09-05] MEDS: ATORVASTATIN CA 20 MG TABLET (FP) PO SCH (21:42)
[2022-09-05] MEDS: GABAPENTIN 100 MG CAPSULE PO SCH (21:42)
[2022-09-06] MEDS: PIPERACILLIN/TAZOB 3.375 GM 3.375 GM in DEXTROSE 5%-WATER - 50 ML IVPB SCH ×3 (01:08→18:03)
[2022-09-06] MEDS: LORazepam 2 MG/ML SDV VIAL IVPUSH PRN (05:16)
[2022-09-06] MEDS: INSULIN SLIDING SCALE (NOVOLOG) 1 VIAL SQ SCH ×3 (07:06→17:18)
[2022-09-06] MEDS: RIVASTIGMINE 9.5 MG/24 HOURS TRANSDERMAL PATCH TD SCH (10:34)
[2022-09-06] MEDS: FOLIC ACID 1 MG TABLET (FP) PO SCH (10:34)
[2022-09-06] MEDS: amLODIPine BESYLATE 10 MG TABLET (FP) PO SCH (10:34)
[2022-09-06] MEDS: PANTOPRAZOLE 40 MG TABLET PO SCH (10:34)
[2022-09-06] MEDS: CHLORTHALIDONE 25 MG TABLET PO SCH (10:34)
[2022-09-06] MEDS: MULTIVITAMINS (DAILY MVI) TABLET (FP) PO SCH (10:42)
[2022-09-06 11:13] LABS: BASO % 0.5 % (0-2.0); EOS % 2.1 % (0-4.5); HEMATOCRIT 34.6 % (35.4-49); HEMOGLOBIN 11.3 GM/dL (11.7-16.9); LYMPH % 7.6 % (8-40); MCH 28.8 pg (25.7-33.7); MCHC 32.6 g/dl (32.0-35.9); MEAN CELL VOLUME 88.3 fl (80-96); MEAN PLT VOLUME 8.8 fl (7.5-11.1); MONO % 8.5 % (3.8-10.2); NEUT % 81.3 % (42.8-82.8); PLATELET COUNT 395 10^3/uL (134-434); RBC 3.91 M/mm3 (4.00-5.60); RDW 14.5 % (11.9-15.9); WHITE BLOOD COUNT 12.4 K/mm3 (4.0-10.0)
[2022-09-06 11:19] LABS: PROTHROMBIN TIME (PATIENT) 47.3 SEC (9.7-13.0)
[2022-09-06 11:37] LABS: POTASSIUM 3.3 mmol/L (3.5-5.1)
[2022-09-06 11:38] LABS: BLOOD UREA NITROGEN 19.6 mg/dL (7-18)
[2022-09-06 11:42] LABS: CREATININE 0.8 mg/dL (0.55-1.3)
[2022-09-06 11:59] LABS: ERYTHROCYTE SEDIMENTATION RATE 44 mm/hr (0-20)
[2022-09-06 12:13] LABS: INR 4.14 (0.83-1.09)
[2022-09-06] MEDS ORDERED: POTASSIUM CHLORIDE TABS 20 MEQ TABLET.ER (FP) PO ONE (13:00)
[2022-09-06] MEDS: ATORVASTATIN CA 20 MG TABLET (FP) PO SCH (22:09)
[2022-09-06] MEDS: GABAPENTIN 100 MG CAPSULE PO SCH (22:09)
[2022-09-07] MEDS: PIPERACILLIN/TAZOB 3.375 GM 3.375 GM in DEXTROSE 5%-WATER - 50 ML IVPB SCH ×2 (01:34→10:57)
[2022-09-07] MEDS: INSULIN SLIDING SCALE (NOVOLOG) 1 VIAL SQ SCH ×2 (06:10→12:29)
[2022-09-07 08:58] LABS: INR 2.98 (0.83-1.09); PROTHROMBIN TIME (PATIENT) 34.2 SEC (9.7-13.0)
[2022-09-07 08:59] LABS: BASO % 0.7 % (0-2.0); EOS % 2.4 % (0-4.5); HEMATOCRIT 34.3 % (35.4-49); HEMOGLOBIN 11.3 GM/dL (11.7-16.9); LYMPH % 8.8 % (8-40); MCH 29.1 pg (25.7-33.7); MCHC 32.9 g/dl (32.0-35.9); MEAN CELL VOLUME 88.3 fl (80-96); MEAN PLT VOLUME 8.7 fl (7.5-11.1); MONO % 6.7 % (3.8-10.2); NEUT % 81.4 % (42.8-82.8); PLATELET COUNT 410 10^3/uL (134-434); RBC 3.88 M/mm3 (4.00-5.60); WHITE BLOOD COUNT 13.7 K/mm3 (4.0-10.0)
[2022-09-07 09:15] LABS: POTASSIUM 3.6 mmol/L (3.5-5.1)
[2022-09-07 09:19] LABS: BLOOD UREA NITROGEN 24.2 mg/dL (7-18); CALCIUM 9.2 mg/dL (8.5-10.1)
[2022-09-07 09:42] LABS: ERYTHROCYTE SEDIMENTATION RATE 94 mm/hr (0-20)
[2022-09-07] MEDS: amLODIPine BESYLATE 10 MG TABLET (FP) PO SCH (10:50)
[2022-09-07] MEDS: MULTIVITAMINS (DAILY MVI) TABLET (FP) PO SCH (10:50)
[2022-09-07] MEDS: PANTOPRAZOLE 40 MG TABLET PO SCH (10:50)
[2022-09-07] MEDS: FOLIC ACID 1 MG TABLET (FP) PO SCH (10:50)
[2022-09-07] MEDS: RIVASTIGMINE 9.5 MG/24 HOURS TRANSDERMAL PATCH TD SCH (10:51)
[2022-09-07] MEDS: CHLORTHALIDONE 25 MG TABLET PO SCH (10:52)
[2022-09-07 12:21] VITALS: BP 146/54; PULSE 78; TEMP 98.7
== END 2022-09-07 13:52 | DRG 193 ==
LOC: JER 19:28 → JERBED 21:16 → J5S 08-29 03:18
PROVIDERS: ADMIT Internal Medicine; ATTEND Internal Medicine
DX: J18.9 Pneumonia, unspecified organism (principal); J96.01 Acute respiratory failure with hypoxia; E87.1 Hypo-osmolality and hyponatremia; I48.20 Chronic atrial fibrillation, unspecified; E87.21 Acute metabolic acidosis; I10 Essential (primary) hypertension; E11.9 Type 2 diabetes mellitus without complications; Z79.01 Long term (current) use of anticoagulants; F03.90 Unspecified dementia, unspecified severity, without behavioral disturbance, psychotic disturbance, mood disturbance, and anxiety; I25.2 Old myocardial infarction; I25.10 Atherosclerotic heart disease of native coronary artery without angina pectoris; H53.2 Diplopia; E78.5 Hyperlipidemia, unspecified; Z95.0 Presence of cardiac pacemaker; E88.09 Other disorders of plasma-protein metabolism, not elsewhere classified; R94.31 Abnormal electrocardiogram [ECG] [EKG]; E87.6 Hypokalemia; D72.829 Elevated white blood cell count, unspecified
CPT/HCPCS: 0241U-QW; 36415; 36430; 71045-TC-FY; 80048; 80053; 81003; 82553; 82728; 82803; 82962; 83540; 83550; 83605; 83880; 84484; 85025; 85610; 85651; 85730; 86140; 86850; 86900; 86901; 87040; 87086; 87635; 87899; 93005; 93010; 94010; 97116-GP; 99285-25; P9017

== ENCOUNTER 2023-01-09 05:36 | Inpatient (IN) | payer OTHER ==
[2023-01-09 05:45] VITALS: BMI 29.9
[2023-01-09 06:36] LABS: BASO % 0.8 % (0-2.0); EOS % 2.1 % (0-4.5); HEMATOCRIT 34.3 % (35.4-49); HEMOGLOBIN 11.5 GM/dL (11.7-16.9); LYMPH % 12.4 % (8-40); MCH 29.3 pg (25.7-33.7); MCHC 33.5 g/dl (32.0-35.9); MEAN CELL VOLUME 87.5 fl (80-96); MEAN PLT VOLUME 7.4 fl (7.5-11.1); MONO % 9.7 % (3.8-10.2); PLATELET COUNT 347 10^3/uL (134-434); RBC 3.92 M/mm3 (4.00-5.60); RDW 16.3 % (11.9-15.9); WHITE BLOOD COUNT 9.5 K/mm3 (4.0-10.0)
[2023-01-09 06:56] LABS: INR 2.97 (0.83-1.09); PROTHROMBIN TIME (PATIENT) 34.1 SEC (9.7-13.0)
[2023-01-09 06:59] LABS: ACTIVATED PTT 40.2 SECONDS (25.2-36.5)
[2023-01-09 07:21] LABS: POTASSIUM 3.8 mmol/L (3.5-5.1)
[2023-01-09 07:24] LABS: ALBUMIN 2.8 g/dl (3.4-5.0); BLOOD UREA NITROGEN 19.9 mg/dL (7-18); CALCIUM 8.9 mg/dL (8.5-10.1); MAGNESIUM 1.7 mg/dL (1.8-2.4)
[2023-01-09 07:27] LABS: CREATININE 0.9 mg/dL (0.55-1.3)
[2023-01-09 07:29] LABS: BILIRUBIN,TOTAL 0.4 mg/dL (0.2-1); TOT PROT 6.9 g/dl (6.4-8.2)
[2023-01-09 08:09] LABS: EPI CELLS 1 /uL (0-25.1); HYALINE CASTS 0 /uL (0-3.1); PH,URINE 6.5 (5.0-8.0); URINE APPEARANCE CLOUDY; URINE BILIRUBIN NEGATIVE (NEGATIVE); URINE COLOR YELLOW; URINE GLUCOSE (UA) NEGATIVE (NEGATIVE); URINE KETONE NEGATIVE (NEGATIVE); URINE LEUK ESTERASE 3+ (NEGATIVE); URINE NITRITE POSITIVE (NEGATIVE); URINE PROTEIN 2+ (NEGATIVE); URINE RBC 30 /uL (0-23.9); URINE UROBILINOGEN 0.2 mg/dL (0.2-1.0); URINE WBC 3506 /uL (0-25.8)
[2023-01-09 08:11] LABS: YEAST NEGATIVE (NEGATIVE)
[2023-01-09] MEDS ORDERED: MAGNESIUM SULF 50% (8.12 MEQ/2 ML-1 GM VIAL) IVPB ONE (09:08)
[2023-01-09] MEDS ORDERED: ACETAMINOPHEN 325 MG TABLET (FP) PO PRN (09:50)
[2023-01-09] MEDS: FOLIC ACID 1 MG TABLET (FP) PO SCH (11:15)
[2023-01-09] MEDS: LISINOPRIL 10 MG TABLET PO SCH (11:15)
[2023-01-09] MEDS: amLODIPine BESYLATE 10 MG TABLET (FP) PO SCH (11:15)
[2023-01-09] MEDS: PANTOPRAZOLE 40 MG TABLET PO SCH (11:15)
[2023-01-09] MEDS ORDERED: CEFTRIAXONE 1 GM/50 ML BAG ONE (11:21)
[2023-01-09] MEDS ORDERED: MAGNESIUM SULFATE IN WATER 2 GM/50 ML IVPB IVPB ONE (11:21)
[2023-01-09] MEDS ORDERED: FOLIC ACID 1 MG TABLET (FP) ONE (11:34)
[2023-01-09] MEDS ORDERED: LISINOPRIL 10 MG TABLET ONE (11:34)
[2023-01-09] MEDS ORDERED: amLODIPine BESYLATE 10 MG TABLET (FP) ONE (11:34)
[2023-01-09] MEDS ORDERED: PANTOPRAZOLE 20 MG TABLET PO ONE (11:54)
[2023-01-09] MEDS: INSULIN SLIDING SCALE (NOVOLOG) 1 VIAL SQ SCH ×2 (12:12→17:00)
[2023-01-09] MEDS: MINERAL OIL/PET HY-PHL TOPICAL OINTMENT 454 GM JAR TP SCH ×2 (14:02→22:54)
[2023-01-09] MEDS: CHLORTHALIDONE 25 MG TABLET PO SCH (14:02)
[2023-01-09] MEDS: WARFARIN NA 2.5 MG TABLET PO SCH (17:28)
[2023-01-09] MEDS: OFLOXACIN 0.3% OPHTHALMIC SOLUTION 5 ML BOTTLE OS SCH ×2 (17:28→22:54)
[2023-01-09] MEDS: GABAPENTIN 100 MG CAPSULE PO SCH (22:41)
[2023-01-10] MEDS: OFLOXACIN 0.3% OPHTHALMIC SOLUTION 5 ML BOTTLE OS SCH ×5 (05:48→22:46)
[2023-01-10] MEDS: INSULIN SLIDING SCALE (NOVOLOG) 1 VIAL SQ SCH ×3 (06:16→17:47)
[2023-01-10 08:34] LABS: POTASSIUM 4.1 mmol/L (3.5-5.1)
[2023-01-10 08:40] LABS: BASO % 0.8 % (0-2.0); EOS % 1.8 % (0-4.5); HEMATOCRIT 35.5 % (35.4-49); HEMOGLOBIN 11.4 GM/dL (11.7-16.9); LYMPH % 8.2 % (8-40); MCHC 32.2 g/dl (32.0-35.9); MEAN PLT VOLUME 8.1 fl (7.5-11.1); MONO % 9.2 % (3.8-10.2); PLATELET COUNT 370 10^3/uL (134-434); RBC 4.08 M/mm3 (4.00-5.60); RDW 15.9 % (11.9-15.9); WHITE BLOOD COUNT 10.4 K/mm3 (4.0-10.0)
[2023-01-10 08:41] LABS: CALCIUM 8.7 mg/dL (8.5-10.1)
[2023-01-10 08:42] LABS: MAGNESIUM 1.8 mg/dL (1.8-2.4)
[2023-01-10 08:45] LABS: CREATININE 0.8 mg/dL (0.55-1.3)
[2023-01-10] MEDS: FOLIC ACID 1 MG TABLET (FP) PO SCH (10:13)
[2023-01-10] MEDS: amLODIPine BESYLATE 10 MG TABLET (FP) PO SCH (10:13)
[2023-01-10] MEDS: CEFTRIAXONE 1 GM in DEXTROSE 5%-WATER - 50 ML IVPB SCH (10:13)
[2023-01-10] MEDS: PANTOPRAZOLE 40 MG TABLET PO SCH (10:13)
[2023-01-10] MEDS: CHLORTHALIDONE 25 MG TABLET PO SCH (10:14)
[2023-01-10] MEDS: LISINOPRIL 10 MG TABLET PO SCH ×2 (10:14→22:44)
[2023-01-10] MEDS: MINERAL OIL/PET HY-PHL TOPICAL OINTMENT 454 GM JAR TP SCH ×2 (10:15→22:46)
[2023-01-10] MEDS ORDERED: MAGNESIUM 2GM/50ML STERILE WATER IVPB IVPB ONE (13:26)
[2023-01-10] MEDS ORDERED: LISINOPRIL 10 MG TABLET PO ONE (13:32)
[2023-01-10 22:08] LABS: INR 3.29 (0.83-1.09); PROTHROMBIN TIME (PATIENT) 37.7 SEC (9.7-13.0)
[2023-01-10] MEDS: GABAPENTIN 100 MG CAPSULE PO SCH (22:44)
[2023-01-10] MEDS: WARFARIN NA 10 MG TABLET PO SCH (22:45)
[2023-01-11] MEDS: OFLOXACIN 0.3% OPHTHALMIC SOLUTION 5 ML BOTTLE OS SCH ×4 (06:39→22:14)
[2023-01-11] MEDS: INSULIN SLIDING SCALE (NOVOLOG) 1 VIAL SQ SCH ×2 (06:42→18:11)
[2023-01-11 08:25] LABS: BASO % 0.8 % (0-2.0); EOS % 1.7 % (0-4.5); HEMATOCRIT 36.2 % (35.4-49); HEMOGLOBIN 11.8 GM/dL (11.7-16.9); LYMPH % 12.1 % (8-40); MCH 28.5 pg (25.7-33.7); MCHC 32.6 g/dl (32.0-35.9); MEAN CELL VOLUME 87.5 fl (80-96); MEAN PLT VOLUME 8.2 fl (7.5-11.1); MONO % 11.4 % (3.8-10.2); PLATELET COUNT 364 10^3/uL (134-434); RBC 4.14 M/mm3 (4.00-5.60); RDW 16.3 % (11.9-15.9); WHITE BLOOD COUNT 10.9 K/mm3 (4.0-10.0)
[2023-01-11 08:41] LABS: POTASSIUM 3.8 mmol/L (3.5-5.1)
[2023-01-11 08:44] LABS: BLOOD UREA NITROGEN 16.4 mg/dL (7-18)
[2023-01-11 08:47] LABS: CREATININE 0.8 mg/dL (0.55-1.3)
[2023-01-11] MEDS ORDERED: COLLAGENASE CLOSTRIDIUM HIST. 30 GRAMS TUBE TP SCH (10:00)
[2023-01-11] MEDS: amLODIPine BESYLATE 10 MG TABLET (FP) PO SCH (10:32)
[2023-01-11] MEDS: CEFTRIAXONE 1 GM in DEXTROSE 5%-WATER - 50 ML IVPB SCH (10:32)
[2023-01-11] MEDS: FOLIC ACID 1 MG TABLET (FP) PO SCH (10:32)
[2023-01-11] MEDS: LISINOPRIL 10 MG TABLET PO SCH ×2 (10:33→22:52)
[2023-01-11] MEDS: CHLORTHALIDONE 25 MG TABLET PO SCH (10:38)
[2023-01-11] MEDS: MINERAL OIL/PET HY-PHL TOPICAL OINTMENT 454 GM JAR TP SCH ×2 (10:40→22:58)
[2023-01-11] MEDS: PANTOPRAZOLE 40 MG TABLET PO SCH (10:43)
[2023-01-11] MEDS: AMINO ACIDS/PROTEIN HYDROLYS 30 ML LIQUID.PKT PO SCH (18:08)
[2023-01-11] MEDS: WARFARIN NA 2.5 MG TABLET PO SCH (18:08)
[2023-01-11 19:03] LABS: INR 2.04 (0.83-1.09); PROTHROMBIN TIME (PATIENT) 23.5 SEC (9.7-13.0)
[2023-01-11] MEDS: GABAPENTIN 100 MG CAPSULE PO SCH (22:52)
[2023-01-12] MEDS: OFLOXACIN 0.3% OPHTHALMIC SOLUTION 5 ML BOTTLE OS SCH ×4 (06:15→13:32)
[2023-01-12] MEDS ORDERED: WARFARIN NA 5 MG TABLET PO SCH (06:41)
[2023-01-12] MEDS ORDERED: INSULIN (NOVOLOG) ASPART 100 UNITS/ML 10ML VIAL ONE (07:19)
[2023-01-12] MEDS: INSULIN SLIDING SCALE (NOVOLOG) 1 VIAL SQ SCH ×2 (07:21→17:10)
[2023-01-12] MEDS: AMINO ACIDS/PROTEIN HYDROLYS 30 ML LIQUID.PKT PO SCH ×2 (11:13→17:10)
[2023-01-12] MEDS: MINERAL OIL/PET HY-PHL TOPICAL OINTMENT 454 GM JAR TP SCH ×2 (11:13→22:10)
[2023-01-12] MEDS: ASCORBIC ACID 500 MG TABLET (FP) PO SCH (11:14)
[2023-01-12] MEDS: MULTIVITAMINS (DAILY MVI) TABLET (FP) PO SCH (11:14)
[2023-01-12] MEDS: amLODIPine BESYLATE 10 MG TABLET (FP) PO SCH (11:14)
[2023-01-12] MEDS: FOLIC ACID 1 MG TABLET (FP) PO SCH (11:14)
[2023-01-12] MEDS: PANTOPRAZOLE 40 MG TABLET PO SCH (11:14)
[2023-01-12] MEDS: CHLORTHALIDONE 25 MG TABLET PO SCH (11:18)
[2023-01-12] MEDS: ZINC SULFATE 220 MG CAPSULE (FP) PO SCH (11:18)
[2023-01-12] MEDS: LISINOPRIL 10 MG TABLET PO SCH ×2 (11:18→22:09)
[2023-01-12] MEDS: WARFARIN NA 10 MG TABLET PO SCH (17:10)
[2023-01-12 17:42] LABS: INR 2.12 (0.83-1.09); PROTHROMBIN TIME (PATIENT) 24.4 SEC (9.7-13.0)
[2023-01-12] MEDS: GABAPENTIN 100 MG CAPSULE PO SCH (22:10)
[2023-01-13] MEDS: INSULIN SLIDING SCALE (NOVOLOG) 1 VIAL SQ SCH (06:30)
[2023-01-13 07:45] LABS: BASO % 0.5 % (0-2.0); EOS % 0.7 % (0-4.5); HEMATOCRIT 38.7 % (35.4-49); HEMOGLOBIN 12.3 GM/dL (11.7-16.9); LYMPH % 9.2 % (8-40); MCH 27.7 pg (25.7-33.7); MCHC 31.8 g/dl (32.0-35.9); MEAN CELL VOLUME 87.1 fl (80-96); MONO % 10.4 % (3.8-10.2); NEUT % 79.2 % (42.8-82.8); PLATELET COUNT 337 10^3/uL (134-434); RBC 4.45 M/mm3 (4.00-5.60); RDW 16.4 % (11.9-15.9); WHITE BLOOD COUNT 13.4 K/mm3 (4.0-10.0)
[2023-01-13] MEDS: AMINO ACIDS/PROTEIN HYDROLYS 30 ML LIQUID.PKT PO SCH (08:41)
[2023-01-13] MEDS: ZINC SULFATE 220 MG CAPSULE (FP) PO SCH (09:31)
[2023-01-13] MEDS: ASCORBIC ACID 500 MG TABLET (FP) PO SCH (09:31)
[2023-01-13] MEDS: MINERAL OIL/PET HY-PHL TOPICAL OINTMENT 454 GM JAR TP SCH (09:31)
[2023-01-13] MEDS: FOLIC ACID 1 MG TABLET (FP) PO SCH (09:31)
[2023-01-13] MEDS: amLODIPine BESYLATE 10 MG TABLET (FP) PO SCH (09:31)
[2023-01-13] MEDS: CHLORTHALIDONE 25 MG TABLET PO SCH (09:32)
[2023-01-13] MEDS: PANTOPRAZOLE 40 MG TABLET PO SCH (09:32)
[2023-01-13] MEDS: LISINOPRIL 10 MG TABLET PO SCH (09:32)
[2023-01-13] MEDS: MULTIVITAMINS (DAILY MVI) TABLET (FP) PO SCH (09:32)
[2023-01-13 11:19] VITALS: BP 133/61; PULSE 77; RESP 18; TEMP 98.2
== END 2023-01-13 13:20 | disposition home or self-care (01) | DRG 689 ==
LOC: JER 05:36 → JERBED 07:04 → OBSVTOIN 09:57 → J7W 12:39
PROVIDERS: ADMIT Internal Medicine; ATTEND Internal Medicine
DX: N39.0 Urinary tract infection, site not specified (principal); L89.153 Pressure ulcer of sacral region, stage 3; R53.2 Functional quadriplegia; I48.20 Chronic atrial fibrillation, unspecified; I10 Essential (primary) hypertension; F03.90 Unspecified dementia, unspecified severity, without behavioral disturbance, psychotic disturbance, mood disturbance, and anxiety; I25.10 Atherosclerotic heart disease of native coronary artery without angina pectoris; E83.42 Hypomagnesemia; E78.5 Hyperlipidemia, unspecified; I11.0 Hypertensive heart disease with heart failure; H10.32 Unspecified acute conjunctivitis, left eye
CPT/HCPCS: 0241U-QW; 36415; 70450-TC; 71045-TC-FY; 72125-TC; 72170-TC-FY; 80048; 80053; 81003; 82962; 83735; 84484; 85025; 85610; 85730; 86850; 86900; 86901; 87040; 87086; 87186; 87635; 93005; 93010; 97116-GP; 97162-GP; 99285-25; G0378

== ENCOUNTER 2023-01-13 22:16 | Inpatient (IN) | payer OTHER ==
[2023-01-13] MEDS ORDERED: SODIUM CHLORIDE 0.9% 500 ML INFUS.BAG IV ONE (23:13)
[2023-01-14] MEDS ORDERED: CEFTRIAXONE 1 GM in DEXTROSE 5%-WATER - 50 ML IVPB ONE (00:15)
[2023-01-14] MEDS ORDERED: SULFAMETHOXAZOLE 80 MG/TRIMETHOPRIM 16 MG/ML VIAL IVPB ONE (00:22)
[2023-01-14 01:11] LABS: BASO % 0.3 % (0-2.0); EOS % 0.2 % (0-4.5); HEMATOCRIT 37.9 % (35.4-49); HEMOGLOBIN 12.2 GM/dL (11.7-16.9); LYMPH % 7.3 % (8-40); MCH 28.1 pg (25.7-33.7); MCHC 32.1 g/dl (32.0-35.9); MEAN CELL VOLUME 87.4 fl (80-96); MEAN PLT VOLUME 8.8 fl (7.5-11.1); MONO % 11.3 % (3.8-10.2); NEUT % 80.9 % (42.8-82.8); PLATELET COUNT 333 10^3/uL (134-434); RBC 4.33 M/mm3 (4.00-5.60); RDW 16.3 % (11.9-15.9); WHITE BLOOD COUNT 15.8 K/mm3 (4.0-10.0)
[2023-01-14] MEDS ORDERED: WATER IVPB ONE (01:15)
[2023-01-14] MEDS ORDERED: TRIMETHOPRIM IVPB ONE (01:15)
[2023-01-14] MEDS ORDERED: SULFAMETHOXAZOLE IVPB ONE (01:15)
[2023-01-14] MEDS ORDERED: DEXTROSE 5% IVPB ONE (01:15)
[2023-01-14 01:19] LABS: INR 3.82 (0.83-1.09); PROTHROMBIN TIME (PATIENT) 43.7 SEC (9.7-13.0)
[2023-01-14 01:21] LABS: ACTIVATED PTT 38.3 SECONDS (25.2-36.5)
[2023-01-14 01:49] LABS: POTASSIUM 3.9 mmol/L (3.5-5.1)
[2023-01-14 01:51] LABS: CALCIUM 8.4 mg/dL (8.5-10.1)
[2023-01-14 01:52] LABS: ALBUMIN 2.6 g/dl (3.4-5.0)
[2023-01-14 01:53] LABS: VENOUS BASE EXCESS 1.6 mmol/L (-2-2); VENOUS O2 SATURATION 81.3 % (70-80); VENOUS PCO2 57.3 mmHg (38-52); VENOUS PH 7.32 (7.310-7.410)
[2023-01-14 01:55] LABS: CREATININE 1.5 mg/dL (0.55-1.3)
[2023-01-14 01:56] LABS: BILIRUBIN,TOTAL 0.3 mg/dL (0.2-1); TOT PROT 6.5 g/dl (6.4-8.2)
[2023-01-14 02:33] LABS: EPI CELLS >36 /uL (0-25.1); HYALINE CASTS 1 /uL (0-3.1); URINE APPEARANCE CLEAR; URINE BACTERIA 22 /uL (0-1359); URINE BILIRUBIN NEGATIVE (NEGATIVE); URINE COLOR YELLOW; URINE GLUCOSE (UA) NEGATIVE (NEGATIVE); URINE KETONE NEGATIVE (NEGATIVE); URINE LEUK ESTERASE 2+ (NEGATIVE); URINE NITRITE NEGATIVE (NEGATIVE); URINE PROTEIN 1+ (NEGATIVE); URINE RBC 22 /uL (0-23.9); URINE WBC 139 /uL (0-25.8)
[2023-01-14 02:58] LABS: BLOOD UREA NITROGEN 46.9 mg/dL (7-18)
[2023-01-14] MEDS ORDERED: PIPERACILLIN/TAZOB 3.375 GM 3.375 GM in DEXTROSE 5%-WATER - 50 ML IVPB ONE (03:11)
[2023-01-14] MEDS ORDERED: VANCOMYCIN HCL 1,500 MG in DEXTROSE 5%-WATER - 500 ML IVPB ONE (03:11)
[2023-01-14] MEDS ORDERED: ACETAMINOPHEN 1000 MG/100 ML BAG IVPB PRN (03:26)
[2023-01-14] MEDS ORDERED: SODIUM CHLORIDE 1,000 ML IV SCH ×3 (03:30→18:57)
[2023-01-14] MEDS ORDERED: PIPERACILLIN/TAZOB 3.375 GM 3.375 GM/50 ML BAG IVPB ONE ×2 (04:39→16:09)
[2023-01-14] MEDS ORDERED: PANTOPRAZOLE SODIUM 40 MG VIAL ONE ×2 (04:39→10:50)
[2023-01-14] MEDS: PANTOPRAZOLE SODIUM 40 MG VIAL IVPUSH SCH ×2 (04:42→11:01)
[2023-01-14] MEDS ORDERED: VANCOMYCIN PREMIX 1.5 GM 1,500 MG/300 ML BAG IVPB ONE (05:00)
[2023-01-14 07:24] LABS: BASO % 0.3 % (0-2.0); EOS % 1.2 % (0-4.5); HEMATOCRIT 32.5 % (35.4-49); HEMOGLOBIN 10.6 GM/dL (11.7-16.9); LYMPH % 10.5 % (8-40); MCH 28.3 pg (25.7-33.7); MCHC 32.6 g/dl (32.0-35.9); MEAN PLT VOLUME 8.1 fl (7.5-11.1); MONO % 12.4 % (3.8-10.2); NEUT % 75.6 % (42.8-82.8); PLATELET COUNT 286 10^3/uL (134-434); RBC 3.73 M/mm3 (4.00-5.60); RDW 16.2 % (11.9-15.9); WHITE BLOOD COUNT 12.6 K/mm3 (4.0-10.0)
[2023-01-14 07:45] LABS: POTASSIUM 3.4 mmol/L (3.5-5.1)
[2023-01-14 07:46] LABS: CALCIUM 8.3 mg/dL (8.5-10.1)
[2023-01-14 07:47] LABS: BLOOD UREA NITROGEN 38.8 mg/dL (7-18)
[2023-01-14 07:50] LABS: CREATININE 1.3 mg/dL (0.55-1.3)
[2023-01-14] MEDS: INSULIN SLIDING SCALE (NOVOLOG) 1 VIAL SQ SCH ×3 (08:33→18:36)
[2023-01-14] MEDS ORDERED: KCL 10 MEQ IVPB 10 MEQ/100 ML INFUS.BAG IVPB ONE ×3 (10:49→11:52)
[2023-01-14] MEDS: KCL 10 MEQ IVPB 10 MEQ/100 ML INFUS.BAG IVPB SCH ×3 (11:01→13:07)
[2023-01-14] MEDS: COLLAGENASE CLOSTRIDIUM HIST. 30 GRAMS TUBE TP SCH (11:53)
[2023-01-14] MEDS: MULTIVITAMINS THER W-MINERALS COMBO TABLET (FP) PO SCH (13:22)
[2023-01-14] MEDS: ZINC SULFATE 220 MG CAPSULE (FP) PO SCH (13:22)
[2023-01-14] MEDS: PIPERACILLIN/TAZOB 3.375 GM 3.375 GM in DEXTROSE 5%-WATER - 50 ML IVPB SCH ×2 (16:17→19:15)
[2023-01-14] MEDS ORDERED: WARFARIN NA 2.5 MG TABLET PO SCH (18:00)
[2023-01-14] MEDS: AMINO ACIDS/PROTEIN HYDROLYS 30 ML LIQUID.PKT PO SCH (18:37)
[2023-01-14 19:16] LABS: PROTHROMBIN TIME (PATIENT) 87.1 SEC (9.7-13.0)
[2023-01-14 19:30] LABS: INR 7.66 (0.83-1.09)
[2023-01-15] MEDS: PIPERACILLIN/TAZOB 3.375 GM 3.375 GM in DEXTROSE 5%-WATER - 50 ML IVPB SCH ×3 (02:05→17:08)
[2023-01-15] MEDS: SODIUM CHLORIDE 1,000 ML IV SCH ×2 (06:28→16:42)
[2023-01-15 08:22] LABS: BASO % 0.8 % (0-2.0); EOS % 2.9 % (0-4.5); HEMATOCRIT 33.9 % (35.4-49); HEMOGLOBIN 11.6 GM/dL (11.7-16.9); LYMPH % 10.8 % (8-40); MCHC 34.1 g/dl (32.0-35.9); MEAN PLT VOLUME 8.7 fl (7.5-11.1); MONO % 8.8 % (3.8-10.2); NEUT % 76.7 % (42.8-82.8); PLATELET COUNT 316 10^3/uL (134-434); RBC 3.99 M/mm3 (4.00-5.60); RDW 16.5 % (11.9-15.9); WHITE BLOOD COUNT 12.6 K/mm3 (4.0-10.0)
[2023-01-15] MEDS: INSULIN SLIDING SCALE (NOVOLOG) 1 VIAL SQ SCH ×3 (08:45→16:57)
[2023-01-15 08:47] LABS: POTASSIUM 4.2 mmol/L (3.5-5.1)
[2023-01-15 08:49] LABS: BLOOD UREA NITROGEN 23.6 mg/dL (7-18)
[2023-01-15 08:52] LABS: CREATININE 0.9 mg/dL (0.55-1.3)
[2023-01-15] MEDS: AMINO ACIDS/PROTEIN HYDROLYS 30 ML LIQUID.PKT PO SCH ×2 (10:42→16:42)
[2023-01-15] MEDS: MULTIVITAMINS THER W-MINERALS COMBO TABLET (FP) PO SCH (10:42)
[2023-01-15] MEDS: PANTOPRAZOLE 40 MG TABLET PO SCH (10:42)
[2023-01-15] MEDS: ZINC SULFATE 220 MG CAPSULE (FP) PO SCH (10:42)
[2023-01-15] MEDS: COLLAGENASE CLOSTRIDIUM HIST. 30 GRAMS TUBE TP SCH (10:43)
[2023-01-15] MEDS: NYSTATIN POWDER 100,000 UNITS/GM - 15 GM TOPICAL POWDER TP SCH ×2 (11:32→21:12)
[2023-01-15 16:46] VITALS: BMI 19.0
[2023-01-15] MEDS ORDERED: WARFARIN NA 10 MG TABLET PO SCH (18:00)
[2023-01-15 21:08] LABS: PROTHROMBIN TIME (PATIENT) 69.3 SEC (9.7-13.0)
[2023-01-15 21:32] LABS: INR 6.08 (0.83-1.09)
[2023-01-15] MEDS ORDERED: LORazepam 2 MG/ML SDV VIAL IVPUSH ONE (22:15)
[2023-01-16] MEDS: PIPERACILLIN/TAZOB 3.375 GM 3.375 GM in DEXTROSE 5%-WATER - 50 ML IVPB SCH ×3 (02:43→17:18)
[2023-01-16] MEDS: SODIUM CHLORIDE 1,000 ML IV SCH (07:10)
[2023-01-16] MEDS: INSULIN SLIDING SCALE (NOVOLOG) 1 VIAL SQ SCH ×3 (07:13→16:46)
[2023-01-16 07:21] LABS: BASO % 0.8 % (0-2.0); EOS % 2.7 % (0-4.5); HEMATOCRIT 32.3 % (35.4-49); HEMOGLOBIN 10.7 GM/dL (11.7-16.9); LYMPH % 15.5 % (8-40); MCH 28.2 pg (25.7-33.7); MEAN CELL VOLUME 85.7 fl (80-96); MEAN PLT VOLUME 8.5 fl (7.5-11.1); MONO % 11.9 % (3.8-10.2); NEUT % 69.1 % (42.8-82.8); PLATELET COUNT 346 10^3/uL (134-434); RBC 3.77 M/mm3 (4.00-5.60); RDW 16.4 % (11.9-15.9); WHITE BLOOD COUNT 9.7 K/mm3 (4.0-10.0)
[2023-01-16 07:54] LABS: POTASSIUM 3.9 mmol/L (3.5-5.1)
[2023-01-16 07:56] LABS: BLOOD UREA NITROGEN 13.9 mg/dL (7-18)
[2023-01-16 07:57] LABS: CALCIUM 8.8 mg/dL (8.5-10.1)
[2023-01-16 08:01] LABS: CREATININE 0.9 mg/dL (0.55-1.3)
[2023-01-16] MEDS ORDERED: IRON SUCROSE INJECTION 300 MG in SODIUM CHLORIDE 235 ML IVPB ONE (09:00)
[2023-01-16] MEDS: ZINC SULFATE 220 MG CAPSULE (FP) PO SCH (09:50)
[2023-01-16] MEDS: MULTIVITAMINS THER W-MINERALS COMBO TABLET (FP) PO SCH (09:50)
[2023-01-16] MEDS: PANTOPRAZOLE 40 MG TABLET PO SCH (09:50)
[2023-01-16] MEDS: AMINO ACIDS/PROTEIN HYDROLYS 30 ML LIQUID.PKT PO SCH ×2 (09:51→17:18)
[2023-01-16] MEDS: NYSTATIN POWDER 100,000 UNITS/GM - 15 GM TOPICAL POWDER TP SCH ×2 (09:51→21:39)
[2023-01-16] MEDS: MINERAL OIL/PET HY-PHL TOPICAL OINTMENT 454 GM JAR TP SCH (09:51)
[2023-01-16] MEDS ORDERED: SODIUM CHLORIDE 1,000 ML IV SCH ×3 (09:55→20:41)
[2023-01-16] MEDS ORDERED: INSULIN (NOVOLOG) ASPART 100 UNITS/ML 10ML VIAL ONE (11:22)
[2023-01-16] MEDS: COLLAGENASE CLOSTRIDIUM HIST. 30 GRAMS TUBE TP SCH (11:27)
[2023-01-16 18:32] LABS: INR 3.68 (0.83-1.09); PROTHROMBIN TIME (PATIENT) 42.1 SEC (9.7-13.0)
[2023-01-17] MEDS: PIPERACILLIN/TAZOB 3.375 GM 3.375 GM in DEXTROSE 5%-WATER - 50 ML IVPB SCH ×3 (01:10→17:46)
[2023-01-17] MEDS: INSULIN SLIDING SCALE (NOVOLOG) 1 VIAL SQ SCH ×3 (06:01→17:13)
[2023-01-17] MEDS ORDERED: SODIUM CHLORIDE 1,000 ML IV SCH (06:03)
[2023-01-17] MEDS ORDERED: INSULIN (LEVEMIR) 100 UNITS/ML UNITS SQ SCH (07:30)
[2023-01-17] MEDS ORDERED: METOPROLOL TARTRATE 5 MG/5 ML VIAL IVPUSH ONE (07:32)
[2023-01-17 07:47] LABS: EOS % 4.2 % (0-4.5); HEMATOCRIT 34.4 % (35.4-49); HEMOGLOBIN 11.1 GM/dL (11.7-16.9); LYMPH % 18.5 % (8-40); MCH 28.3 pg (25.7-33.7); MCHC 32.4 g/dl (32.0-35.9); MEAN CELL VOLUME 87.5 fl (80-96); MEAN PLT VOLUME 8.6 fl (7.5-11.1); MONO % 9.9 % (3.8-10.2); NEUT % 66.4 % (42.8-82.8); PLATELET COUNT 289 10^3/uL (134-434); RBC 3.93 M/mm3 (4.00-5.60); RDW 16.3 % (11.9-15.9); WHITE BLOOD COUNT 8.3 K/mm3 (4.0-10.0)
[2023-01-17] MEDS ORDERED: amLODIPine BESYLATE 10 MG TABLET (FP) PO ONE (08:00)
[2023-01-17] MEDS: AMINO ACIDS/PROTEIN HYDROLYS 30 ML LIQUID.PKT PO SCH ×2 (08:10→17:14)
[2023-01-17 08:16] LABS: POTASSIUM 3.8 mmol/L (3.5-5.1)
[2023-01-17 08:20] LABS: CALCIUM 8.8 mg/dL (8.5-10.1)
[2023-01-17 08:21] LABS: BLOOD UREA NITROGEN 13.6 mg/dL (7-18)
[2023-01-17 08:25] LABS: CREATININE 0.8 mg/dL (0.55-1.3)
[2023-01-17] MEDS: MINERAL OIL/PET HY-PHL TOPICAL OINTMENT 454 GM JAR TP SCH (09:31)
[2023-01-17] MEDS: NYSTATIN POWDER 100,000 UNITS/GM - 15 GM TOPICAL POWDER TP SCH ×2 (09:31→22:10)
[2023-01-17] MEDS: PANTOPRAZOLE 40 MG TABLET PO SCH (09:31)
[2023-01-17] MEDS: ZINC SULFATE 220 MG CAPSULE (FP) PO SCH (09:31)
[2023-01-17] MEDS: COLLAGENASE CLOSTRIDIUM HIST. 30 GRAMS TUBE TP SCH (09:32)
[2023-01-17] MEDS ORDERED: INSULIN (NOVOLOG) ASPART 100 UNITS/ML 10ML VIAL ONE (11:49)
[2023-01-17] MEDS: MULTIVITAMINS THER W-MINERALS COMBO TABLET (FP) PO SCH (12:49)
[2023-01-17] MEDS: WARFARIN NA 10 MG TABLET PO SCH (17:13)
[2023-01-17 17:25] LABS: INR 2.01 (0.83-1.09); PROTHROMBIN TIME (PATIENT) 23.1 SEC (9.7-13.0)
[2023-01-17] MEDS: INSULIN (LEVEMIR) 100 UNITS/ML UNITS SQ SCH (22:10)
[2023-01-18] MEDS: PIPERACILLIN/TAZOB 3.375 GM 3.375 GM in DEXTROSE 5%-WATER - 50 ML IVPB SCH ×3 (03:30→17:00)
[2023-01-18] MEDS: INSULIN SLIDING SCALE (NOVOLOG) 1 VIAL SQ SCH ×3 (06:42→16:11)
[2023-01-18] MEDS: INSULIN (LEVEMIR) 100 UNITS/ML UNITS SQ SCH ×2 (06:42→21:09)
[2023-01-18 07:04] LABS: EOS % 3.8 % (0-4.5); HEMATOCRIT 35.3 % (35.4-49); HEMOGLOBIN 11.5 GM/dL (11.7-16.9); LYMPH % 20.3 % (8-40); MCH 28.5 pg (25.7-33.7); MCHC 32.7 g/dl (32.0-35.9); MEAN CELL VOLUME 87.3 fl (80-96); MEAN PLT VOLUME 8.6 fl (7.5-11.1); MONO % 9.7 % (3.8-10.2); NEUT % 65.2 % (42.8-82.8); PLATELET COUNT 332 10^3/uL (134-434); RBC 4.05 M/mm3 (4.00-5.60); RDW 16.2 % (11.9-15.9); WHITE BLOOD COUNT 9.7 K/mm3 (4.0-10.0)
[2023-01-18 07:38] LABS: POTASSIUM 3.9 mmol/L (3.5-5.1)
[2023-01-18 07:39] LABS: CALCIUM 8.7 mg/dL (8.5-10.1)
[2023-01-18 07:43] LABS: CREATININE 0.9 mg/dL (0.55-1.3)
[2023-01-18] MEDS: PANTOPRAZOLE 40 MG TABLET PO SCH (09:00)
[2023-01-18] MEDS: MINERAL OIL/PET HY-PHL TOPICAL OINTMENT 454 GM JAR TP SCH (09:00)
[2023-01-18] MEDS: amLODIPine BESYLATE 10 MG TABLET (FP) PO SCH (09:00)
[2023-01-18] MEDS: ZINC SULFATE 220 MG CAPSULE (FP) PO SCH (09:00)
[2023-01-18] MEDS: MULTIVITAMINS THER W-MINERALS COMBO TABLET (FP) PO SCH (09:01)
[2023-01-18] MEDS: COLLAGENASE CLOSTRIDIUM HIST. 30 GRAMS TUBE TP SCH (09:01)
[2023-01-18] MEDS: NYSTATIN POWDER 100,000 UNITS/GM - 15 GM TOPICAL POWDER TP SCH ×2 (09:01→21:09)
[2023-01-18] MEDS: AMINO ACIDS/PROTEIN HYDROLYS 30 ML LIQUID.PKT PO SCH ×2 (09:01→16:54)
[2023-01-18 16:40] LABS: INR 2.67 (0.83-1.09); PROTHROMBIN TIME (PATIENT) 30.7 SEC (9.7-13.0)
[2023-01-18] MEDS: WARFARIN NA 5 MG TABLET PO SCH (17:00)
[2023-01-18] MEDS ORDERED: WARFARIN NA 2.5 MG TABLET PO SCH (18:00)
[2023-01-18] MEDS: ACETAMINOPHEN 325 MG TABLET (FP) PO PRN (21:24)
[2023-01-19] MEDS: PIPERACILLIN/TAZOB 3.375 GM 3.375 GM in DEXTROSE 5%-WATER - 50 ML IVPB SCH ×2 (01:06→09:00)
[2023-01-19] MEDS: INSULIN (LEVEMIR) 100 UNITS/ML UNITS SQ SCH ×2 (06:09→21:11)
[2023-01-19] MEDS: INSULIN SLIDING SCALE (NOVOLOG) 1 VIAL SQ SCH ×3 (06:09→16:33)
[2023-01-19 08:06] LABS: EOS % 4.9 % (0-4.5); HEMATOCRIT 35.9 % (35.4-49); LYMPH % 18.1 % (8-40); MCH 28.9 pg (25.7-33.7); MCHC 33.3 g/dl (32.0-35.9); MEAN CELL VOLUME 86.8 fl (80-96); MEAN PLT VOLUME 8.1 fl (7.5-11.1); MONO % 9.7 % (3.8-10.2); NEUT % 66.3 % (42.8-82.8); PLATELET COUNT 353 10^3/uL (134-434); RBC 4.14 M/mm3 (4.00-5.60); RDW 15.9 % (11.9-15.9); WHITE BLOOD COUNT 8.4 K/mm3 (4.0-10.0)
[2023-01-19] MEDS: MINERAL OIL/PET HY-PHL TOPICAL OINTMENT 454 GM JAR TP SCH (09:00)
[2023-01-19] MEDS: amLODIPine BESYLATE 10 MG TABLET (FP) PO SCH (09:00)
[2023-01-19] MEDS: PANTOPRAZOLE 40 MG TABLET PO SCH (09:00)
[2023-01-19] MEDS: NYSTATIN POWDER 100,000 UNITS/GM - 15 GM TOPICAL POWDER TP SCH ×2 (09:00→21:14)
[2023-01-19] MEDS: AMINO ACIDS/PROTEIN HYDROLYS 30 ML LIQUID.PKT PO SCH ×2 (09:00→16:35)
[2023-01-19] MEDS: ZINC SULFATE 220 MG CAPSULE (FP) PO SCH (09:00)
[2023-01-19] MEDS: COLLAGENASE CLOSTRIDIUM HIST. 30 GRAMS TUBE TP SCH (09:00)
[2023-01-19] MEDS: MULTIVITAMINS THER W-MINERALS COMBO TABLET (FP) PO SCH (09:00)
[2023-01-19] MEDS ORDERED: INSULIN (NOVOLOG) ASPART 100 UNITS/ML 10ML VIAL ONE ×4 (10:55→16:44)
[2023-01-19 15:55] LABS: INR 3.53 (0.83-1.09); PROTHROMBIN TIME (PATIENT) 40.4 SEC (9.7-13.0)
[2023-01-19] MEDS ORDERED: WARFARIN NA 2.5 MG TABLET PO ONE (18:00)
[2023-01-20] MEDS: INSULIN SLIDING SCALE (NOVOLOG) 1 VIAL SQ SCH ×3 (06:15→17:18)
[2023-01-20] MEDS ORDERED: INSULIN (LEVEMIR) 100 UNITS/ML UNITS SQ SCH (07:00)
[2023-01-20 07:40] LABS: BASO % 1.1 % (0-2.0); EOS % 4.3 % (0-4.5); HEMATOCRIT 33.6 % (35.4-49); HEMOGLOBIN 10.9 GM/dL (11.7-16.9); MCH 28.2 pg (25.7-33.7); MCHC 32.4 g/dl (32.0-35.9); MEAN CELL VOLUME 87.3 fl (80-96); MEAN PLT VOLUME 8.1 fl (7.5-11.1); NEUT % 71.6 % (42.8-82.8); PLATELET COUNT 386 10^3/uL (134-434); RBC 3.85 M/mm3 (4.00-5.60); RDW 16.2 % (11.9-15.9); WHITE BLOOD COUNT 11.5 K/mm3 (4.0-10.0)
[2023-01-20] MEDS: AMINO ACIDS/PROTEIN HYDROLYS 30 ML LIQUID.PKT PO SCH ×2 (08:19→17:43)
[2023-01-20] MEDS ORDERED: IRON SUCROSE INJECTION 300 MG in SODIUM CHLORIDE 235 ML IVPB ONE (10:00)
[2023-01-20] MEDS: MULTIVITAMINS THER W-MINERALS COMBO TABLET (FP) PO SCH (10:27)
[2023-01-20] MEDS: amLODIPine BESYLATE 10 MG TABLET (FP) PO SCH (10:27)
[2023-01-20] MEDS: ZINC SULFATE 220 MG CAPSULE (FP) PO SCH (10:27)
[2023-01-20] MEDS: PANTOPRAZOLE 40 MG TABLET PO SCH (10:27)
[2023-01-20] MEDS: NYSTATIN POWDER 100,000 UNITS/GM - 15 GM TOPICAL POWDER TP SCH ×2 (10:28→21:19)
[2023-01-20] MEDS: MINERAL OIL/PET HY-PHL TOPICAL OINTMENT 454 GM JAR TP SCH (10:28)
[2023-01-20] MEDS: COLLAGENASE CLOSTRIDIUM HIST. 30 GRAMS TUBE TP SCH (10:29)
[2023-01-20 15:46] LABS: INR 2.96 (0.83-1.09)
[2023-01-20] MEDS: WARFARIN NA 5 MG TABLET PO SCH (17:43)
[2023-01-20] MEDS: INSULIN (LEVEMIR) 100 UNITS/ML UNITS SQ SCH (21:19)
[2023-01-20] MEDS: ACETAMINOPHEN 325 MG TABLET (FP) PO PRN (21:20)
[2023-01-21] MEDS: INSULIN (LEVEMIR) 100 UNITS/ML UNITS SQ SCH ×2 (06:09→21:08)
[2023-01-21] MEDS: INSULIN SLIDING SCALE (NOVOLOG) 1 VIAL SQ SCH ×3 (06:09→17:08)
[2023-01-21 08:33] LABS: BASO % 1.1 % (0-2.0); EOS % 3.7 % (0-4.5); HEMOGLOBIN 11.6 GM/dL (11.7-16.9); LYMPH % 16.3 % (8-40); MCH 28.2 pg (25.7-33.7); MCHC 32.2 g/dl (32.0-35.9); MEAN CELL VOLUME 87.6 fl (80-96); MEAN PLT VOLUME 8.5 fl (7.5-11.1); MONO % 8.7 % (3.8-10.2); NEUT % 70.2 % (42.8-82.8); PLATELET COUNT 341 10^3/uL (134-434); RBC 4.11 M/mm3 (4.00-5.60); RDW 16.3 % (11.9-15.9); WHITE BLOOD COUNT 9.4 K/mm3 (4.0-10.0)
[2023-01-21] MEDS: amLODIPine BESYLATE 10 MG TABLET (FP) PO SCH (09:12)
[2023-01-21] MEDS: PANTOPRAZOLE 40 MG TABLET PO SCH (09:12)
[2023-01-21] MEDS: AMINO ACIDS/PROTEIN HYDROLYS 30 ML LIQUID.PKT PO SCH ×2 (09:12→17:08)
[2023-01-21] MEDS: MULTIVITAMINS THER W-MINERALS COMBO TABLET (FP) PO SCH (09:13)
[2023-01-21] MEDS: ZINC SULFATE 220 MG CAPSULE (FP) PO SCH (09:13)
[2023-01-21] MEDS: NYSTATIN POWDER 100,000 UNITS/GM - 15 GM TOPICAL POWDER TP SCH ×2 (09:17→21:08)
[2023-01-21] MEDS: MINERAL OIL/PET HY-PHL TOPICAL OINTMENT 454 GM JAR TP SCH (09:18)
[2023-01-21] MEDS: COLLAGENASE CLOSTRIDIUM HIST. 30 GRAMS TUBE TP SCH (09:18)
[2023-01-21] MEDS ORDERED: INSULIN (NOVOLOG) ASPART 100 UNITS/ML 10ML VIAL ONE (17:34)
[2023-01-21 17:39] LABS: INR 2.18 (0.83-1.09); PROTHROMBIN TIME (PATIENT) 25.1 SEC (9.7-13.0)
[2023-01-21] MEDS: WARFARIN NA 5 MG TABLET PO SCH (17:42)
[2023-01-21] MEDS: ACETAMINOPHEN 325 MG TABLET (FP) PO PRN (21:06)
[2023-01-22] MEDS: INSULIN SLIDING SCALE (NOVOLOG) 1 VIAL SQ SCH ×3 (06:34→17:17)
[2023-01-22] MEDS: INSULIN (LEVEMIR) 100 UNITS/ML UNITS SQ SCH ×2 (06:34→22:30)
[2023-01-22 07:17] LABS: EOS % 3.6 % (0-4.5); HEMATOCRIT 39.8 % (35.4-49); HEMOGLOBIN 12.9 GM/dL (11.7-16.9); LYMPH % 16.9 % (8-40); MCH 28.4 pg (25.7-33.7); MCHC 32.3 g/dl (32.0-35.9); MEAN CELL VOLUME 87.9 fl (80-96); MEAN PLT VOLUME 8.3 fl (7.5-11.1); MONO % 10.4 % (3.8-10.2); NEUT % 68.1 % (42.8-82.8); PLATELET COUNT 391 10^3/uL (134-434); RBC 4.53 M/mm3 (4.00-5.60); RDW 15.9 % (11.9-15.9); WHITE BLOOD COUNT 9.8 K/mm3 (4.0-10.0)
[2023-01-22] MEDS: AMINO ACIDS/PROTEIN HYDROLYS 30 ML LIQUID.PKT PO SCH ×2 (10:00→18:12)
[2023-01-22] MEDS: MINERAL OIL/PET HY-PHL TOPICAL OINTMENT 454 GM JAR TP SCH (10:00)
[2023-01-22] MEDS: NYSTATIN POWDER 100,000 UNITS/GM - 15 GM TOPICAL POWDER TP SCH ×2 (10:00→23:35)
[2023-01-22] MEDS: amLODIPine BESYLATE 10 MG TABLET (FP) PO SCH (10:00)
[2023-01-22] MEDS: COLLAGENASE CLOSTRIDIUM HIST. 30 GRAMS TUBE TP SCH (10:01)
[2023-01-22] MEDS: ZINC SULFATE 220 MG CAPSULE (FP) PO SCH (10:01)
[2023-01-22] MEDS: MULTIVITAMINS THER W-MINERALS COMBO TABLET (FP) PO SCH (10:01)
[2023-01-22] MEDS: PANTOPRAZOLE 40 MG TABLET PO SCH (10:01)
[2023-01-22] MEDS ORDERED: INSULIN (NOVOLOG) ASPART 100 UNITS/ML 10ML VIAL ONE ×2 (12:52→13:53)
[2023-01-22] MEDS: WARFARIN NA 10 MG TABLET PO SCH (18:12)
[2023-01-23] MEDS: INSULIN (LEVEMIR) 100 UNITS/ML UNITS SQ SCH (06:36)
[2023-01-23] MEDS: INSULIN SLIDING SCALE (NOVOLOG) 1 VIAL SQ SCH ×3 (06:36→18:06)
[2023-01-23] MEDS: NYSTATIN POWDER 100,000 UNITS/GM - 15 GM TOPICAL POWDER TP SCH (09:54)
[2023-01-23] MEDS: MINERAL OIL/PET HY-PHL TOPICAL OINTMENT 454 GM JAR TP SCH (09:54)
[2023-01-23] MEDS: MULTIVITAMINS THER W-MINERALS COMBO TABLET (FP) PO SCH (09:54)
[2023-01-23] MEDS: amLODIPine BESYLATE 10 MG TABLET (FP) PO SCH (09:54)
[2023-01-23] MEDS: AMINO ACIDS/PROTEIN HYDROLYS 30 ML LIQUID.PKT PO SCH ×2 (09:54→18:06)
[2023-01-23] MEDS: PANTOPRAZOLE 40 MG TABLET PO SCH (09:54)
[2023-01-23] MEDS: ZINC SULFATE 220 MG CAPSULE (FP) PO SCH (09:54)
[2023-01-23] MEDS ORDERED: INSULIN (NOVOLOG) ASPART 100 UNITS/ML 10ML VIAL ONE (12:11)
[2023-01-23] MEDS: COLLAGENASE CLOSTRIDIUM HIST. 30 GRAMS TUBE TP SCH (12:21)
[2023-01-23 16:27] VITALS: PULSE 81
[2023-01-23 18:36] LABS: INR 2.28 (0.83-1.09); PROTHROMBIN TIME (PATIENT) 26.2 SEC (9.7-13.0)
[2023-01-23] MEDS: WARFARIN NA 5 MG TABLET PO SCH (18:45)
[2023-01-23 20:49] VITALS: BP 125/55; RESP 20; TEMP 97.8
== END 2023-01-23 19:20 | DRG 871 ==
LOC: JER 22:16 → JERBED 01-14 03:09 → J2W 01-15 09:37
PROVIDERS: ADMIT Internal Medicine; ATTEND Internal Medicine
DX: A41.9 Sepsis, unspecified organism (principal); L89.153 Pressure ulcer of sacral region, stage 3; R65.21 Severe sepsis with septic shock; N39.0 Urinary tract infection, site not specified; I48.20 Chronic atrial fibrillation, unspecified; G45.9 Transient cerebral ischemic attack, unspecified; N17.9 Acute kidney failure, unspecified; F03.90 Unspecified dementia, unspecified severity, without behavioral disturbance, psychotic disturbance, mood disturbance, and anxiety; I25.10 Atherosclerotic heart disease of native coronary artery without angina pectoris; I11.0 Hypertensive heart disease with heart failure; Z95.5 Presence of coronary angioplasty implant and graft; D50.9 Iron deficiency anemia, unspecified; E86.0 Dehydration; I50.9 Heart failure, unspecified
CPT/HCPCS: 0241U-QW; 36415; 70450-TC; 71045-TC-FY; 80048; 80053; 81003; 82728; 82803; 82962; 83540; 83550; 83605; 84484; 85025; 85610; 85730; 87040; 87086; 87635; 93005; 93010; 97162-GP; 99285-25; G0480; J1756